=== PATIENT | male | born 1950 | race African-American/Black ===

== ENCOUNTER 2018-01-18 13:54 | Outpatient (CLI) | payer MEDICARE, MEDICAID ==
--- NOTE | 2018-01-18 15:24 | RAD ---
TWO VIEWS OF THE LUMBAR SPINE: DATE: 01/18/18. COMPARISON: Lumbar spine MRI 08/27/16. HISTORY: Fall, evaluate for an L1 fracture. FINDINGS: At the L1 level, there is an age-indeterminate anterior wedge compression fracture. Secondary to bod y habitus, detailed assessment is slightly limited. Anterior loss of vertebral body height is estima minesh in the 35% range. There is disk space narrowing with degenerative end plate change and facet hyp ertrophy at L4-5 and L5-S1. IMPRESSION: Anterior wedge compression fracture of the L1 vertebral body as described above. POS: KIP
== END 2018-01-18 13:55 | disposition home or self-care (01) ==
LOC: TBSIIMAG 13:54
PROVIDERS: ATTEND Neurological Surgery
DX: S32.010A Wedge compression fracture of first lumbar vertebra, initial encounter for closed fracture (principal); S32.2XXA Fracture of coccyx, initial encounter for closed fracture
CPT/HCPCS: 72100

== ENCOUNTER 2018-03-02 13:17 | Outpatient (CLI) | payer MEDICARE, MEDICAID ==
--- NOTE | 2018-03-02 14:10 | RAD ---
TWO VIEWS LUMBOSACRAL SPINE: Comparison: 01-18-18 History: Low back pain with bilateral leg pain and swelling. Patient fell two months ago. FINDINGS: Two views of the lumbosacral spine shows wedge compression deformity of the L1 vertebral body with ap proximately 10-25% height loss. This is unchanged compared to the prior exam. The vertebral bodies de monstrate normal alignment without subluxation. There are small osteophytes surrounding L4-5 and L5-S 1. IMPRESSION: Stable wedge compression fracture of L1. POS: KIP
== END 2018-03-02 13:18 | disposition home or self-care (01) ==
LOC: TBSIIMAG 13:17
PROVIDERS: ATTEND Neurological Surgery
DX: M48.56XA Collapsed vertebra, not elsewhere classified, lumbar region, initial encounter for fracture (principal)
CPT/HCPCS: 72100

== ENCOUNTER 2018-07-21 05:23 | Emergency (ER) | payer MEDICARE, MEDICAID | END 2018-07-21 06:11 | disposition home or self-care (01) | LOC: ERS 05:23 | DX: R06.02 Shortness of breath (principal); G47.30 Sleep apnea, unspecified; E78.5 Hyperlipidemia, unspecified; K21.9 Gastro-esophageal reflux disease without esophagitis; I25.10 Atherosclerotic heart disease of native coronary artery without angina pectoris; E11.9 Type 2 diabetes mellitus without complications; I11.0 Hypertensive heart disease with heart failure; I50.9 Heart failure, unspecified; Z79.899 Other long term (current) drug therapy | CPT/HCPCS: 99284 ==

== ENCOUNTER 2019-03-03 22:55 | Observation (INO) | payer MEDICARE, MEDICAID ==
[~2019-03-03 22:55] MED LIST: ISOVUE-370 76%-LOCM 1 ML ONE
[2019-03-03 23:49] LABS: #Eosinphils 0.1 thou/uL (0.0-0.7); #Lymphocytes 1.3 thou/uL (1.20-3.40); #Monocytes 0.5 thou/uL (0.11-0.59); %Basophils 0.6 % (0.0-1.0); %Eosinophils 1.5 % (0.0-10.0); %Lymphocytes 19.1 % (21.0-51.0); %Monocytes 7.3 % (0.0-10.0); %Neutrophils 71.4 % (42.0-75.0); Hemoglobin 12.4 g/dL (14.0-18.0); Mean Corpuscular Hemoglobin 28.6 pg (27.0-31.0); Mean Corpuscular Volume 89.3 fL (78.0-98.0); Mean Platelet Volume 8.8 fL (7.4-10.4); Platelet Count 157 thou/uL (130-400); RBC Distribution Width 13.1 % (11.5-14.5); Red Blood Cell (RBC) Count 4.32 mill/uL (4.70-6.10)
[2019-03-04 00:10] LABS: ALT (SGPT) 14 U/L (8-55); AST (SGOT) 15 U/L (5-34); Albumin 3.7 g/dL (3.4-4.8); Alkaline Phosphatase 100 U/L (40-150); Anion Gap 10 mmol/L (10-20); BUN (Urea Nitrogen) 19 mg/dL (8.4-25.7); Bilirubin, Total 0.5 mg/dL (0.2-1.2); Calc. Creatinine Clearance 0 mL/min (70-130); Calcium 8.9 mg/dL (7.8-10.44); Carbon Dioxide 26 mmol/L (23-31); Chloride 107 mmol/L (98-107); Estimated GFR-MDRD 47; Globulin 2.8 g/dL (2.4-3.5); Glucose 150 mg/dL (80-115); Lipase 75 U/L (8-78); Potassium 3.6 mmol/L (3.5-5.1); Protein, Total 6.5 g/dL (5.8-8.1); Sodium 139 mmol/L (136-145)
[2019-03-04 00:30] LABS: CKMB 2.3 ng/mL (0-6.6)
[2019-03-04] MEDS ORDERED: Aspirin 325 MG TAB ONE (00:44)
[2019-03-04 03:37] LABS: Troponin I 0.017 ng/mL (< 0.028)
[2019-03-04 06:04] LABS: Anion Gap 11 mmol/L (10-20); BUN (Urea Nitrogen) 18 mg/dL (8.4-25.7); Calc. Creatinine Clearance 100 mL/min (70-130); Calcium 8.9 mg/dL (7.8-10.44); Carbon Dioxide 26 mmol/L (23-31); Chloride 108 mmol/L (98-107); Estimated GFR-MDRD 56; Glucose 114 mg/dL (80-115); Magnesium 2.1 mg/dL (1.6-2.6); Potassium 3.9 mmol/L (3.5-5.1); Sodium 141 mmol/L (136-145)
[2019-03-04 06:09] LABS: Troponin I Less than 0.010 ng/mL (< 0.028)
[2019-03-04] MEDS ORDERED: Morphine 2 MG/ML SYRINGE SLOW IVP PRN (07:25)
[2019-03-04] MEDS ORDERED: Famotidine 20 MG TAB PO SCH (07:30)
--- NOTE | 2019-03-04 07:53 | CT ---
CT ANGIOGRAM OF THE CHEST AND ABDOMEN AORTIC DISSECTION PROTOCOL: DATE: 03/04/2019. COMPARISON: None. HISTORY: Constipation, pressure in the chest. TECHNIQUE: Axial CT imaging is obtained at 2.5 mm intervals from the thoracic inlet through the aortic bifurcati on with IV contrast using a CT angiogram protocol. Coronal and sagittal 3D reformatted imaging obtai anthony. FINDINGS: There is no axillary, hilar, or mediastinal lymphadenopathy. There is scattered atherosclerotic calcification of the coronary arteries, the aortic arch, and the d escending thoracic aorta. There is no pneumothorax noted on either side. There are linear atelectatic changes noted within the right middle lobe, the lingula, and bilateral l ower lobes. No endobronchial lesion identified on either side. No acute pulmonary parenchymal abnor mality is seen on either side. Osseous structures of the chest demonstrate no acute findings. There is an age-indeterminate anterior wedge compression fracture involving the L1 vertebral body wit h approximately 50% loss of vertebral body height anteriorly. This fracture is favored to be old. T here is prominent degenerative change at L4-5 and L5-S1 with disk space narrowing, vacuum disk format ion, and bilateral facet hypertrophy. There is osteophyte encroachment on the neural foramina bilate rally at the L5-S1 level. No evidence for aneurysm or dissection is seen involving the thoracic aorta. The pelvis is not fully imaged on this exam. Lack of oral contrast limits assessment of the bowel. The liver, spleen, pancreas, and adrenal glands are unremarkable. The bilateral kidneys demonstrate multifocal cortical thinning and a peripheral loculated configurati on. There is no evidence for hydronephrosis on either side. There are 2 cysts noted within the left kidney measuring up to 3.2 cm. There is scattered diverticulosis of the descending colon and sigmoid colon. No evidence for diverti culitis. The appendix is visualized and is within normal limits. There is multifocal scattered atherosclerotic calcification of the abdominal aorta and its branches. There is no aneurysm or dissection of the abdominal aorta. No lymphadenopathy is seen in the abdomen. IMPRESSION: No evidence for aneurysm or dissection of the abdominal or thoracic aorta. Numerous incidental findi ngs as described above. POS: SAVANAH
[2019-03-04] MEDS ORDERED: Aspirin 325 MG TAB PO SCH (09:00)
[2019-03-04] MEDS ORDERED: Nitroglycerin 0.4 MG TAB (25 Tab Bottle) SL PRN (09:02)
[2019-03-04] MEDS ORDERED: Dextrose 5% in Water 1,000 ML IV PRN (09:13)
[2019-03-04] MEDS ORDERED: Dextrose 50% Abboject 50 ML SYRINGE SLOW IVP PRN (09:13)
[2019-03-04] MEDS ORDERED: Allopurinol 100 MG TAB PO SCH (09:15)
[2019-03-04] MEDS ORDERED: Aspirin 81 mg Enteric Coated Tablet PO SCH (09:15)
[2019-03-04] MEDS ORDERED: Polyethylene Glycol 3350 17 GM Packet PO SCH (09:15)
[2019-03-04] MEDS ORDERED: Amlodipine 10 MG TAB PO SCH (09:15)
[2019-03-04] MEDS ORDERED: Carvedilol 6.25 MG TAB PO SCH (09:15)
--- NOTE | 2019-03-04 09:54 | HP ---
CHIEF COMPLAINT: Abdominal pain. HISTORY OF PRESENT ILLNESS: The patient is a 68-year-old male, who presented via the emergency department. The patient reports that he has some abdominal bloating and fullness. He has felt some pressure in the abdomen that is causing him a little bit of difficulty taking a full breath. He says it is a little bit better at the moment, but still feels the fullness. The patient did have a bowel movement last night and reports that is the first time in 3 or 4 days. It is common for him to have constipation and he takes something routinely to try to help with that, he does not know the name of it. He denies any chest pain, fevers, or chills. No shortness of breath. Other than the fullness in the abdomen, he has mild chronic cough which he relates to some allergies, but nothing new. REVIEW OF SYSTEMS: All other systems reviewed. All pertinent positives and negatives noted in the HPI. PAST MEDICAL HISTORY: 1. Coronary artery disease with an IA in 1996 with PTCA and stent. Repeat catheterization in 2006 with RCA stent. 2. He has a history of atrial flutter with ablation. 3. Diabetes mellitus. 4. Obstructive sleep apnea, on CPAP. 5. Hyperlipidemia. 6. Hypertension. 7. Chronic kidney disease stage 3. 8. Diverticulosis. 9. L1 compression fracture. PAST SURGICAL HISTORY: 1. Cardiac ablation. 2. Left shoulder replacement. 3. Coronary stents. FAMILY HISTORY: 1. Diabetes. 2. Hypertension. SOCIAL HISTORY: The patient is nonsmoker, nondrinker, nondrug user. He lives alone and gets up and around well on his own. He is . He is full code. His is his surrogate decision maker. ALLERGIES: CODEINE. CURRENT MEDICATIONS: 1. Nitroglycerin p.r.n. 2. Flonase Allergy Relief p.r.n. 3. Calcium 500 mg q.i.d. 4. Atorvastatin 80 mg at bedtime. 5. Pioglitazone 15 mg daily. 6. Esomeprazole 40 mg daily. 7. Carvedilol 12.5 b.i.d. 8. Furosemide 40 mg b.i.d. 9. Potassium 10 mEq daily. 10. Amlodipine 5 mg daily. 11. Aspirin 81 mg daily. 12. Allopurinol 200 mg daily. 13. Tramadol 100 mg b.i.d. 14. Zetia 10 mg at bedtime. 15. Victoza 1.2 subcu p.r.n. PHYSICAL EXAMINATION: VITAL SIGNS: Temperature 98.4, pulse 57, respirations 20, O2 saturation 94% on room air, blood pressure 137/61. GENERAL APPEARANCE: Age-appropriate male. He is in no distress. Very pleasant and cooperative. He is very morbidly obese. BMI is noted at 47.6. HEENT: PERRL. He has no OP lesions. His pharyngeal airway is not visible behind his tongue. NECK: Very large, supple otherwise. HEART: Regular rate and rhythm without murmurs, gallops, or rubs. LUNGS: Diminished, partly due to compromised exam by the body habitus, but no wheezes or rales are noted. ABDOMEN: Obese, soft, nondistended. He does have bowel sounds present which are generally normal. Very modest tenderness to palpation diffusely just giving him more of the sensation of bloat. EXTREMITIES: There are some mild chronic skin changes, but only trace edema bilaterally. NEUROLOGICAL: He moves all extremities spontaneously. He has normal cognition. PSYCH: Normal affect and behavior. SKIN: The patient has normal skin turgor. LABORATORY DATA: White count 7.0, hemoglobin 12.4, platelets 157. Labs initially; sodium 139, potassium 3.6, chloride 107, CO2 of 26, BUN 19, creatinine is 1.76, GFR is 47, glucose 150. Calcium normal. LFTs normal. Troponin 0.029. BNP is 114. Albumin 3.7. Repeat labs; chloride 108, creatinine is 1.5, GFR is 56, and glucose is 111. Troponin number two is 0.17, number three is 0.01. CT dissection protocol shows no evidence of aneurysm or dissection of the abdomen or thoracic aorta. There are some calcifications of the aorta, cortical thinning of the kidneys, L1 compression fracture with degenerative changes at L4-L5 and L5-S1. Diverticulosis is noted. EKG shows sinus rhythm with first-degree AV block, some nonspecific T-wave abnormalities. IMPRESSION AND PLAN: 1. Abdominal pain. The patient has some chronic issues with constipation and motility. We will go ahead and give him some MiraLAX at this point to see if we can clear the system a little better. 2. Shortness of breath. This appears to be related to the abdominal bloat and should improve, does not appear to be cardiac in nature. 3. History of coronary artery disease. The patient does not have any chest pain nor does he have any significant evidence of myocardial injury. Given his chronic kidney disease, his age and size, I do not believe that his troponin represents significant abnormality. It is nonphysiologic downward trend. 4. Diabetes mellitus. We will provide Accu-Cheks sliding scale. 5. Chronic kidney disease stage 3, stable. 6. Hypertension. Resume home medications, otherwise stable. 7. Obstructive sleep apnea. I suspect the patient will not be here overnight to require additional CPAP. Job ID: [id number]
[2019-03-04] MEDS: Acetaminophen 325 MG TAB PO PRN ×2 (14:19→22:36)
[2019-03-04] MEDS: Furosemide 20 MG TAB PO SCH (14:20)
[2019-03-04] MEDS ORDERED: cloNIDine 0.1 MG TAB PO PRN (15:31)
[2019-03-04] MEDS: HumaLOG 300 UNITS/3 ML VIAL SC PRN (18:06)
[2019-03-04] MEDS: Famotidine 20 MG TAB PO SCH (21:03)
[2019-03-04] MEDS: traMADol HCl 50 MG TAB PO SCH (21:03)
--- NOTE | 2019-03-04 22:23 | CON ---
DATE OF CONSULTATION: HISTORY OF PRESENT ILLNESS: Trey Dominguez is a 68-year-old black male, followed by Dr. Knight. In 1995, he had myocardial infarction with total occlusion of the obtuse marginal branch. In 1999, he underwent cardiac catheterization. Normal left ventricular function of 50% to 55%. There was a 50% diagonal lesion. The first obtuse marginal was totally occluded. The right coronary artery had a 90% proximal occlusion. I had seen the patient and was going to place a stent in this location, however, subsequent angiogram showed that the area looked fairly normal and was felt that the 90% occlusion was actually spasm of the right coronary artery and no PTCA or stent was performed. In 2006, he presented with atrial flutter and underwent ablation of that. Since that time, he has done fairly well and continued to follow with Dr. Knight in the office. He now is admitted with abdominal pain and bloating. He has problems with chronic constipation and whenever he is constipated, feels short of breath. He denies any chest discomfort. He has been placed on telemetry and has had episodes of bradycardia. He denies any episodes of syncope. He states that at times he may feel little lightheaded. He has obstructive sleep apnea, but does not have a CPAP machine here. PAST MEDICAL HISTORY: Coronary artery disease, diabetes, hypertension, hypercholesterolemia, obstructive sleep apnea, chronic renal insufficiency, morbid obesity, history of atrial flutter with ablation. PAST SURGICAL HISTORY: Atrial flutter ablation, left shoulder replacement. MEDICATIONS: 1. Allopurinol 200 daily. 2. Amlodipine 5 mg daily. 3. Aspirin 81 daily. 4. Atorvastatin 80 at bedtime. 5. Tums 500 mg p.r.n. 6. Carvedilol 12.5 b.i.d. 7. Nexium 40 daily. 8. Zetia 10 mg at bedtime. 9. Furosemide 40 b.i.d. 10. Linzess 290 mcg daily. 11. Victoza p.r.n. 12. Nitroglycerin p.r.n. 13. Actos 15 mg daily. 14. Tramadol 100 mg b.i.d. 15. Potassium 10 mEq daily. ALLERGIES: CODEINE. FAMILY HISTORY: Positive for coronary artery disease. SOCIAL HISTORY: He does not smoke or drink. REVIEW OF SYSTEMS: Unremarkable. PHYSICAL EXAMINATION: VITAL SIGNS: Blood pressure 165/76, pulse of 60. HEENT: PERRL. NECK: Supple. CHEST: Clear. CARDIAC: S1 and S2 normal without any S3, S4, or murmurs. Carotid upstrokes normal without bruits. ABDOMEN: Very obese. Normal bowel sounds. No tenderness. EXTREMITIES: Trace pretibial edema. NEUROLOGICAL: Grossly intact. SKIN: Warm and dry. LABORATORY DATA: EKG reveals normal sinus rhythm, first-degree AV block, nonspecific ST and T-wave changes. Hemoglobin 12.4, hematocrit 38.6, white count 7000, platelets 157,000. Sodium 141, potassium 3.9, chloride 108, carbon dioxide 26, BUN 18, creatinine 1.50. Cardiac enzymes are unremarkable. BNP 113.7. IMPRESSION: 1. Varying degrees of atrioventricular block. Mostly he has type 1 second- degree AV block. At times, he does have 2-1 block. Some of these episodes occur at night and he does not have his CPAP available and may be related to that. He certainly has never had any syncope, but does have some lightheaded episodes. Carvedilol 12. BID has been discontinued. We will continue to monitor the patient with you. 2. Coronary artery disease with myocardial infarction in 1995 due to occlusion of the first obtuse marginal. In 1999, he had right coronary artery spasm, however , no PTCA was performed and no stent was inserted. 3. Status post atrial flutter ablation. 4. Diabetes. 5. Hypertension. 6. Hypercholesterolemia. 7. Morbid obesity. 8. Obstructive sleep apnea. PLAN: We will continue to monitor the patient with you. At the present time, I do not feel that pacemaker insertion is indicated. Will continue to monitor off Carvedilol. Amlodipine dose may need to be increased. Job ID: [id number] MTDD
[2019-03-04] MEDS ORDERED: Calcium Carbonate 500 MG ChewTAB PO PRN (22:28)
[2019-03-05 04:23] VITALS: BMI 46.8
[2019-03-05] MEDS: Furosemide 20 MG TAB PO SCH ×2 (08:17→13:48)
[2019-03-05] MEDS: traMADol HCl 50 MG TAB PO SCH ×2 (08:18→20:19)
[2019-03-05] MEDS: Famotidine 20 MG TAB PO SCH ×2 (08:18→20:19)
[2019-03-05] MEDS ORDERED: Fluticasone Propionate Nasal Spray 16 gm Bottle NASAL PRN (09:15)
[2019-03-05] MEDS ORDERED: Amlodipine 5 MG TAB PO SCH (09:30)
[2019-03-05] MEDS: HumaLOG 300 UNITS/3 ML VIAL SC PRN (12:44)
[2019-03-05] MEDS ORDERED: Polyethylene Glycol 3350 17 GM Packet PO SCH (13:15)
--- NOTE | 2019-03-05 15:12 | PDOC.PN ---
- Subjective Encounter Start Date: 03/05/19 Encounter Start Time: 15:10 Subjective: feels much better -: has more of an abdominal discomfort which is rather chronic - Objective Resuscitation Status - Order Detail: 03/04/19 09:00 Resuscitation Status Routine Resuscitation Status: FULL: Full Resuscitation MAR Reviewed: Yes Vital Signs & Weight: Vital Signs (12 hours) Temp Pulse Resp BP BP Pulse Ox 03/05/19 11:12 98.0 F 52 L 13 168/78 H 96 03/05/19 08:20 97.8 F 60 13 145/95 H 98 03/05/19 03:27 97.6 F 62 12 145/73 H 97 Weight Weight 327 lb 6.4 oz I&O: 03/04/19 03/05/19 03/06/19 06:59 06:59 06:59 Intake Total 0 240 480 Output Total 1930 501 Balance 0 -1689 Result Diagrams: 03/03/19 23:37 03/04/19 05:37 Additional Labs: Accuchecks 03/05/19 03/05/19 03/04/19 10:33 06:11 20:34 POC Glucose 174 H 134 H 139 H 03/04/19 16:35 POC Glucose 179 H Laboratory Tests 02/11/18 03/03/19 03/03/19 12:09 23:37 23:37 Creatinine 1.63 H 1.76 H Troponin I 0.029 H 03/04/19 03/04/19 03/04/19 03:05 05:37 05:37 Creatinine 1.50 H Troponin I 0.017 Less than 0.010 Phys Exam - Physical Examination Constitutional: NAD HEENT: PERRLA, moist MMs, sclera anicteric, TM's clear, oral pharynx no lesions , 2+ tonsils Neck: no nodes, no JVD, supple, full ROM Respiratory: no wheezing, no rales, no rhonchi, wheezing present, clear to auscultation bilateral Cardiovascular: RRR, no significant murmur, no rub, gallop, irregular Gastrointestinal: soft, non-tender distended Musculoskeletal: no edema, pulses present, edema present Neurological: non-focal, normal sensation, moves all 4 limbs Psychiatric: normal affect, A&O x 3 Dx/Plan (1) AV block Code(s): I44.30 - UNSPECIFIED ATRIOVENTRICULAR BLOCK Status: Acute Comment: cont to hold BB. cardiology following.HR stable for now.on tele (2) ANGELA (obstructive sleep apnea) Code(s): G47.33 - OBSTRUCTIVE SLEEP APNEA (ADULT) (PEDIATRIC) Status: Chronic Comment: CPAP at home.encouraged daily use (3) CKD (chronic kidney disease) stage 3, GFR 30-59 ml/min Status: Chronic Comment: stable.monitor (4) Diabetes 1.5, managed as type 2 Code(s): E13.9 - OTHER SPECIFIED DIABETES MELLITUS WITHOUT COMPLICATIONS Status: Chronic (5) Hypertension Code(s): I10 - ESSENTIAL (PRIMARY) HYPERTENSION Status: Chronic Comment: controlled. cont home meds (6) Morbid obesity Code(s): E66.01 - MORBID (SEVERE) OBESITY DUE TO EXCESS CALORIES Status: Chronic - Plan DVT proph w/SCDs dispo per cardiolgy recs -: may need Event/holter monitor.BB on hols.restart amlodipine for BP -: one mpore dose of Miralaz. restart Linzess. -: HD stable otherwise * . Review of Systems - Review of Systems Constitutional: negative: fever, chills, sweats, weakness, malaise, other Respiratory: negative: Cough, Dry, Shortness of Breath, Hemoptysis, SOB with Excertion, Pleuritic Pain, Sputum, Wheezing Cardiovascular: negative: chest pain, palpitations, orthopnea, paroxysmal nocturnal dyspnea, edema, light headedness, other Gastrointestinal: negative: Nausea, Vomiting, Abdominal Pain, Diarrhea, Constipation, Melena, Hematochezia, Other Genitourinary: negative: Dysuria, Frequency, Incontinence, Hematuria, Retention , Other Musculoskeletal: negative: Neck Pain, Shoulder Pain, Arm Pain, Back Pain, Hand Pain, Leg Pain, Foot Pain, Other Skin: negative: Rash, Lesions, [place], Bruising, Other Neurological: negative: Weakness, Numbness, Incoordination, Change in Speech, Confusion, Seizures, Other - Medications/Allergies Allergies/Adverse Reactions: Allergies Allergy/AdvReac Type Severity Reaction Status Date / Time codeine Allergy Verified 03/04/19 03:06 Medications: Current Medications Acetaminophen (Tylenol) 650 mg PO Q6H PRN PRN Reason: Headache/Fever or Pain Last Admin: 03/04/19 22:36 Dose: 650 mg Amlodipine Besylate (Norvasc) 5 mg PO DAILY [facility] Atorvastatin Calcium (Lipitor) 80 mg PO HS [facility] Calcium Carbonate (Tums) 500 mg PO QIDPRN PRN PRN Reason: Gas Pain Last Admin: 03/04/19 22:36 Dose: 500 mg Clonidine (Catapres) 0.1 mg PO Q4H PRN PRN Reason: SBP > 180, DBP > 100 Last Admin: 03/04/19 15:50 Dose: 0.1 mg Dextrose/Water (Dextrose 50%) 25 gm SLOW IVP PRN PRN PRN Reason: Hypoglycemia Ezetimibe (Zetia) 10 mg PO HS [facility] Famotidine (Pepcid) 20 mg PO BID [facility] Last Admin: 03/05/19 08:18 Dose: 20 mg Fluticasone Propionate (Flonase Nasal [place]) 0 gm NASAL DAILY PRN PRN Reason: Allergies Furosemide (Lasix) 40 mg PO 0700,1400 [facility] Last Admin: 03/05/19 13:48 Dose: 40 mg Glucagon (Glucagon) 1 mg IM PRN PRN PRN Reason: Hypoglycemia Dextrose/Water (D5w) 1,000 mls @ 0 mls/hr IV .Q0M PRN PRN Reason: Hypoglycemia Insulin Human Lispro (Humalog) 0 units SC .MILD SLIDING SCALE PRN PRN Reason: Mild Correctional Scale Last Admin: 03/05/19 12:44 Dose: 2 unit Nitroglycerin (Nitrostat) 0.4 mg SL Q5MIN PRN PRN Reason: Chest Pain (Linaclotide [ (Linzess] 290 Mcg)) 290 mcg PO DAILY-AC [facility] Pantoprazole Sodium (Protonix) 40 mg PO DAILY [facility] Pioglitazone HCl (Actos) 15 mg PO DAILY [facility] Polyethylene Glycol (Miralax) 17 gm PO NOW [facility] Stop: 03/05/19 15:15 Last Admin: 03/05/19 13:48 Dose: 17 gm Tramadol HCl (Ultram) 100 mg PO BID [facility] Last Admin: 03/05/19 08:18 Dose: 100 mg
[2019-03-05] MEDS: Acetaminophen 325 MG TAB PO PRN (18:03)
[2019-03-05] MEDS: (Linaclotide [Linzess] 290 MCG) PO SCH (18:29)
[2019-03-05] MEDS: hydrALAZINE 25 MG TAB PO SCH (20:19)
[2019-03-05] MEDS ORDERED: Atorvastatin Calcium 40 MG TAB PO SCH (21:00)
[2019-03-05] MEDS ORDERED: Ezetimibe 10 MG TAB PO SCH (21:00)
[2019-03-06] MEDS: Furosemide 20 MG TAB PO SCH ×2 (08:16→13:24)
[2019-03-06] MEDS: Famotidine 20 MG TAB PO SCH (08:17)
[2019-03-06] MEDS: traMADol HCl 50 MG TAB PO SCH (08:17)
[2019-03-06] MEDS: hydrALAZINE 25 MG TAB PO SCH ×2 (08:17→15:50)
[2019-03-06] MEDS: (Linaclotide [Linzess] 290 MCG) PO SCH (08:19)
[2019-03-06] MEDS ORDERED: Pioglitazone HCl 15 MG TAB PO SCH (09:00)
[2019-03-06] MEDS ORDERED: Amlodipine 5 MG TAB PO SCH (09:00)
[2019-03-06] MEDS ORDERED: Amlodipine 10 MG TAB PO SCH (09:15)
[2019-03-06] MEDS ORDERED: Carvedilol 6.25 MG TAB PO SCH ×2 (12:30→17:00)
[2019-03-06 16:06] VITALS: BP 167/87; TEMP 97.7
--- NOTE | 2019-03-07 00:52 | DIS ---
DATE OF ADMISSION: 03/04/2019 DATE OF DISCHARGE: 03/06/2019 CONDITION: At the time of discharge, stable and improved. DISCHARGE DISPOSITION: Home. DISCHARGE DIAGNOSES: 1. AV block and sinus bradycardia, intermittently likely due to beta blockers. 2. Chronic abdominal discomfort due to likely irritable bowel syndrome, morbid obesity, and constipation. 3. Obstructive sleep apnea, on CPAP at home. 4. Chronic kidney disease, stage 3. 5. Diabetes mellitus. 6. Hypertension. 7. Morbid obesity with a BMI of 46. PROCEDURES DONE IN HOSPITAL: CT scan with dissection protocol, which is negative for anything acute. Diverticulosis without diverticulitis was seen. Calcification of abdominal aorta and its branches was seen. Old L1 vertebral body fracture was seen. Lungs clear. IN-HOUSE CONSULTATION: Cardiology, Dr. Pulliam and Dr. Knight. DISCHARGE MEDICATIONS: Coreg dose has been reduced from 12.5 mg p.o. b.i.d. to 6.25 mg p.o. b.i.d. He was also given hydralazine 25 p.o. t.i.d. p.r.n. to use systolic blood pressure more than 170. Otherwise, resume home medications as previously. No other changes were made. Please see admission history and physical dictated by Dr. Luis Monae for a complete list of home medications. HISTORY OF PRESENTING ILLNESS: Mr. Dominguez is a 69-year-old male with past medical history of diabetes, morbid obesity, sleep apnea, and coronary artery disease with history of stenting as well as history of atrial flutter with ablation in the past, who presented to the emergency room with complaints of abdominal pain, constipation, and was admitted to Internal Medicine Service for further evaluation, even though his symptoms are rather chronic. There were some concerns of shortness of breath because of the abnormal distention that needed to be ruled out as cardiac. CT dissection protocol was done which was negative for the same. Please see H and P dictated by Dr. Luis Monae for full details on 03/04/2019. HOSPITAL COURSE: Cardiac enzymes were trended and were unremarkable. Cardiology saw the patient. He had some changes on the heart monitor suggestive of bradycardia with variable degrees of AV block, so carvedilol was held. Dr. Knight, who is his regular plodding operator, saw the patient this morning and his heart rate is in the high 50s to low 60s, so carvedilol was restarted at a lower dose. His blood pressure was also running high without it. He was given hydralazine only p.r.n. basis. At this time, there is no further evaluation necessary. His symptoms have improved and he has had a big bowel movement yesterday evening with MiraLAX. He will continue his Linzess as an outpatient. His symptoms are quite suggestive of irritable bowel syndrome. Other than that, he required no real intervention while in the hospital. He was seen and examined prior to discharge. Vital signs are stable. Blood pressure at the time of discharge, 167/87, in no acute distress, sitting up and eating lunch. Chest clear to auscultation bilaterally. Rate and rhythm are regular. He will follow up with Dr. Knight in one month. PRIMARY CARE PHYSICIAN: Dr. Viviana Sams. Job ID: [id number]
[2019-03-07] MEDS ORDERED: Amlodipine 10 MG TAB PO SCH (09:00)
== END 2019-03-06 17:00 | disposition home or self-care (01) ==
LOC: ERS 22:55 → 2SW 03-04 01:00
PROVIDERS: ADMIT Hospitalist; ATTEND Hospitalist
DX: R10.9 Unspecified abdominal pain (principal); G89.29 Other chronic pain; I44.0 Atrioventricular block, first degree; R00.1 Bradycardia, unspecified; G47.33 Obstructive sleep apnea (adult) (pediatric); R06.02 Shortness of breath; I25.10 Atherosclerotic heart disease of native coronary artery without angina pectoris; I13.0 Hypertensive heart and chronic kidney disease with heart failure and stage 1 through stage 4 chronic kidney disease, or unspecified chronic kidney disease; E11.22 Type 2 diabetes mellitus with diabetic chronic kidney disease; N18.3 Chronic kidney disease, stage 3 (moderate); I50.9 Heart failure, unspecified; E66.01 Morbid (severe) obesity due to excess calories; E78.5 Hyperlipidemia, unspecified; K21.9 Gastro-esophageal reflux disease without esophagitis; Z99.89 Dependence on other enabling machines and devices; Z68.42 Body mass index [BMI] 45.0-49.9, adult; Z95.5 Presence of coronary angioplasty implant and graft; Z88.5 Allergy status to narcotic agent; Z79.82 Long term (current) use of aspirin; Z79.899 Other long term (current) drug therapy
CPT/HCPCS: 71275; 80048; 80053; 82553; 82962 ×3; 83605; 83690; 83735; 83880; 84484 ×3; 85025; 93005; 96374; 99285; G0378 ×4; 36415; 36416; J2270; Q9966

== ENCOUNTER 2019-06-23 23:32 | Inpatient (IN) | payer MEDICARE, MEDICAID ==
[2019-06-23 23:59] LABS: #Basophils 0.1 thou/uL (0.0-0.2); #Eosinphils 0.2 thou/uL (0.0-0.7); #Lymphocytes 1.4 thou/uL (1.20-3.40); #Monocytes 0.8 thou/uL (0.11-0.59); #Neutrophils 6.9 thou/uL (1.40-6.50); %Basophils 0.7 % (0.0-1.0); %Eosinophils 1.7 % (0.0-10.0); %Lymphocytes 15.4 % (21.0-51.0); %Monocytes 8.3 % (0.0-10.0); %Neutrophils 73.9 % (42.0-75.0); Hemoglobin 12.9 g/dL (14.0-18.0); Mean Corpuscular HGB CONC 32.8 g/dL (32.0-36.0); Mean Corpuscular Hemoglobin 29.3 pg (27.0-31.0); Mean Corpuscular Volume 89.3 fL (78.0-98.0); Mean Platelet Volume 8.7 fL (7.4-10.4); Platelet Count 195 thou/uL (130-400); RBC Distribution Width 12.1 % (11.5-14.5); Red Blood Cell (RBC) Count 4.39 mill/uL (4.70-6.10); White Blood Cell (WBC) Count 9.4 thou/uL (4.8-10.8)
--- NOTE | 2019-06-24 00:01 | RAD ---
EXAM: CHEST ONE VIEW HISTORY: Dyspnea. COMPARISON: 03/27/2014 FINDINGS: This examination is obtained in a shallow depth of inspiration which in combination with the portable technique of the exam accentuates the cardiac silhouette and bronchovascular markings. Linear bibasilar densities are seen which may be related to either mild atelectasis or scarring. A left candis ohumeral prosthesis is partially imaged. Vascular calcifications are again seen in an ectatic thoracic aorta. Chest has not significantly changed from prior exam. IMPRESSION: Bibasilar atelectasis and/or scarring. There is otherwise no acute cardiopulmonary process.
[2019-06-24 00:20] LABS: ALT (SGPT) 13 U/L (8-55); AST (SGOT) 14 U/L (5-34); Alkaline Phosphatase 108 U/L (40-110); Anion Gap 13 mmol/L (10-20); BUN (Urea Nitrogen) 24 mg/dL (8.4-25.7); Bilirubin, Total 0.5 mg/dL (0.2-1.2); Calc. Creatinine Clearance 0 mL/min (70-130); Carbon Dioxide 27 mmol/L (23-31); Chloride 104 mmol/L (98-107); Estimated GFR-MDRD 42; Glucose 114 mg/dL (80-115); Magnesium 1.9 mg/dL (1.6-2.6); Potassium 3.7 mmol/L (3.5-5.1); Sodium 140 mmol/L (136-145)
[2019-06-24] MEDS ORDERED: Aspirin Chewable 81 MG TAB ONE (00:48)
[2019-06-24 01:15] LABS: Bilirubin Negative (Negative); Blood, Urine Negative (Negative); Clarity Clear (Clear); Glucose, Urine (Dipstick) Normal (Negative); Leukocyte Negative Leu/uL (Negative); Nitrite Negative (Negative); Protein, Urine (Dipstick) Negative (Neg-Trace)
[2019-06-24 01:53] LABS: Troponin I Less than 0.010 ng/mL (< 0.028)
[2019-06-24] MEDS ORDERED: Furosemide 40 MG/4 ML VIAL SLOW IVP SCH ×2 (02:00→14:00)
--- NOTE | 2019-06-24 02:05 | PDOC.EVN ---
Event Note - Event Note Event Note: [id number] HP
--- NOTE | 2019-06-24 02:50 | HP ---
CHIEF COMPLAINT: Shortness of breath. HISTORY OF PRESENT ILLNESS: Mr. Dominguez is a 69-year-old male with history of coronary artery disease, diabetes, hyperlipidemia, hypertension, morbid obesity, among others, presents to the emergency room with shortness of breath and orthopnea for the last few days. Also, he noticed mild leg swelling. Initial workup in the emergency room including troponin and EKG, no acute finding. CT angiogram of the chest is being done, results are pending at time of this dictation. The patient's creatinine is 1.95. D-dimer 0.69. Chest x-ray shows bibasilar atelectasis and/or scarring. CT angiogram of the chest is being done, results are pending. The patient is being admitted to the hospital for further management. PAST MEDICAL HISTORY: 1. Diabetes. 2. Hyperlipidemia. 3. Hypertension. 4. Smoking. 5. Coronary artery disease. 6. Morbid obesity. PAST SURGICAL HISTORY: Cardiac stent x2. SOCIAL HISTORY: Denies alcohol use. Denies drug use. Denies smoking history. FAMILY HISTORY: Reviewed and noncontributory. HOME MEDICATIONS: Please see home medication reconciliation form for updated medications. ALLERGIES: ALLERGIC TO CODEINE. REVIEW OF SYSTEMS: Review of 14 systems is negative except what is mentioned in the history of present illness. PHYSICAL EXAMINATION: GENERAL: The patient is awake, alert, orthopneic, morbidly obese. HEAD AND NECK: Normocephalic, atraumatic. NECK: Supple. CHEST: Decreased air entry bilaterally. HEART: S1, S2. Regular. ABDOMEN: Obese, soft. Bowel sounds present. NEUROLOGIC: Awake, alert, oriented x3. PSYCH: Normal mood. EXTREMITIES: 1+ pedal edema. LABORATORY DATA: As mentioned above in the history of present illness. ASSESSMENT: 1. Shortness of breath, etiology is not clear, still waiting for CT angiogram of the chest results. 2. Congestive heart failure ? 3. Coronary artery disease with history of cardiac stents. 4. Morbid obesity. 5. Hypertension. 6. Hyperlipidemia. 7. Diabetes mellitus, type 2. 8. Elevated creatinine. PLAN: 1. Admit. 2. Telemetry monitoring. 3. Serial cardiac enzymes. 4. 2D echo. 5. Follow CT angiogram results of the chest. 6. Give the patient one dose of IV Lasix and reassess in a.m. 7. Consider to consult the patient's upsetter helper in a.m. for evaluation and further recommendations if the patient remains symptomatic. 8. Monitor kidney function and urine output. 9. Reconcile home medications. 10. DVT prophylaxis, low-dose heparin. 11. Expected length of stay is at least 1 midnight if the patient is stable and shows significant clinical improvement. Job ID: [id number]
[2019-06-24 03:10] LABS: Anion Gap 10 mmol/L (10-20); BUN (Urea Nitrogen) 25 mg/dL (8.4-25.7); Calc. Creatinine Clearance 0 mL/min (70-130); Carbon Dioxide 29 mmol/L (23-31); Chloride 104 mmol/L (98-107); Estimated GFR-MDRD 45; Glucose 98 mg/dL (80-115); Potassium 4.2 mmol/L (3.5-5.1); Sodium 139 mmol/L (136-145)
[2019-06-24 03:23] VITALS: BMI 46.5
[2019-06-24 05:00] LABS: Troponin I Less than 0.010 ng/mL (< 0.028)
--- NOTE | 2019-06-24 08:11 | CT ---
PRELIMINARY REPORT/[facility]/EMERGENCY AFTER HOURS PROCEDURE PROCEDURE INFORMATION: Exam: CT Angiography Chest With Contrast Exam date and time: 06/24/2019 12:41 AM Clinical history: 69 years old, male; Patient HX: PT reports shortness of breath beginning yesterday. He states that it is most severe when he is lying flat, or with exertion. PT denies any chest pain, o r pain upon inspiration/expiration. Cardiac stent x2 TECHNIQUE: Imaging protocol: Computed tomographic angiography of the chest with intravenous contrast. 3D rendering: MIP reconstructed images were created and reviewed. COMPARISON: No relevant prior studies available. FINDINGS: Pulmonary arteries: Suboptimal contrast bolus. No filling defect in the main pulmonary artery or main right or left pulmonary arteries to suggest pulmonary embolism. Assessment for embolism beyond the central level cannot be accurately rendered due to bolus limitations. Aorta: No aortic aneurysm. No aortic dissection. Lungs: Low lung volumes bilaterally with bibasilar consolidations, likely reflective of atelectasis f rom lack of expansion. Benign calcified sub cm granuloma, right upper lobe. Pleural space: No pneumothorax. No pleural effusion. Heart: There are atheromatous calcifications of the aorta and coronary vasculature. Lymph nodes: Unremarkable. No enlarged lymph nodes. Bones/joints: Chronic degenerative spinal changes without acute fracture or dislocation. Soft tissues: Unremarkable. IMPRESSION: No filling defect in the main pulmonary artery or main right or left pulmonary arteries to suggest pulmonary embolism. Assessment for embolism beyond the central level cannot be accurately rendered due to bolus limitations. Low lung volumes bilaterally with bibasilar consolidations, likely reflective of atelectasis from lac k of expansion. Remote granulomatous disease changes. Thank you for allowing us to participate in the care of your patient. Dictated and Authenticated by: Casper Macario MD 06/24/2019 1:16 AM Central Time ([place] & [place]) FINAL REPORT: CT PULMONARY ANGIOGRAM WITH IV CONTRAST AND 3D MIP RECONSTRUCTIONS: PROVIDED CLINICAL HISTORY: Chest pain COMPARISON: 03/04/2019 FINDINGS/IMPRESSION: Agree with the preliminary interpretation given by CARLOS. Transcribed Date/Time: 06/24/2019 8:26 AM
[2019-06-24] MEDS: Heparin 5,000 UNITS/ML VIAL SC SCH ×3 (08:17→20:28)
[2019-06-24] MEDS ORDERED: Aspirin 325 mg Enteric Coated Tablet PO SCH (09:00)
[2019-06-24] MEDS ORDERED: Nitroglycerin 0.4 MG TAB (25 Tab Bottle) SL PRN (10:21)
[2019-06-24] MEDS ORDERED: (Liraglutide [Victoza 2-Pak] 1.2 MG) SC PRN (10:21)
[2019-06-24] MEDS ORDERED: Simethicone Chewable 80 MG TAB PO PRN (10:49)
[2019-06-24] MEDS: Furosemide 40 MG TAB PO SCH (14:02)
--- NOTE | 2019-06-24 15:21 | CON ---
DATE OF CONSULTATION: 06/24/2019 REASON FOR CONSULTATION: Shortness of breath. PRIMARY CENTRAL OFFICE REPAIRER: Noah Knight MD HISTORY OF PRESENT ILLNESS: Mr. Dominguez is a pleasant 69-year-old gentleman who comes to the hospital for shortness of breath. He was diagnosed clinically with heart failure. He was given IV Lasix and is already feeling a little bit better. He was admitted for this. His troponins have been negative. His BNP was completely normal. He is still needing nasal cannula. He does have a history of [id number] coronary artery disease. Last catheterization was about 19 years ago. He is morbidly obese and uses CPAP. He does not have it with him today, and he is going into 2:1 AV block while sleeping, also having Wenckebach while sleeping. He admits to having some chest pain recently, but currently he is not having any chest pain, tightness, or pressure, only shortness of breath that is actually getting better. He is unable to lie flat today, but feels much better and probably will be able to lie flat tomorrow. PAST MEDICAL HISTORY: 1. Type 2 diabetes. 2. Hyperlipidemia. 3. Hypertension. 4. History of smoking. 5. Coronary artery disease with a 50% diagonal lesion and occluded OM, which was a cause of his initial AR in 1995. A severe RCA lesion in the year 1999 was thought to be spasm. He does not have any stents in. 6. History of atrial flutter, status post ablation back in 2006. 7. Sleep apnea. PAST SURGICAL HISTORY: Cardiac catheterization. He has never had a stent placed in the past. This needs to be corrected in the surgical history. It says that he has been stented before, he has never had a stent in the past. For future notes, he has never had a stent in the past. OUTPATIENT MEDICATIONS: 1. Victoza. 2. Zetia. 3. Amlodipine 10 mg a day. 4. Potassium chloride 10 mEq a day. 5. Sublingual nitroglycerin p.r.n. 6. Hydralazine 25 mg t.i.d. 7. Linzess. 8. Aspirin 81 a day. 9. Tramadol p.r.n. 10. Pioglitazone 15 mg a day. 11. Nexium daily. 12. Furosemide 40 mg twice a day. 13. Atorvastatin 80 mg at bedtime. 14. Allopurinol 200 mg a day. ALLERGIES: CODEINE AND LETTUCE. FAMILY HISTORY: Noncontributory. SOCIAL HISTORY: No alcohol, tobacco, or drugs. REVIEW OF SYSTEMS: A 12-point review of systems was done and is all negative unless stated in the history of present illness. PHYSICAL EXAMINATION: VITAL SIGNS: Temperature 98.3, pulse 80, respiratory rate 20, saturating 98% on 2 L nasal cannula, blood pressure 143/87. GENERAL: Awake, alert, oriented x3, in no distress. HEENT: Normocephalic and atraumatic. NECK: Supple. LUNGS: Distant but clear. CARDIOVASCULAR: S1 and S2. No S3 or S4. There is a very soft grade 1 to 2/6 systolic murmur at the right upper sternal border. ABDOMEN: Soft. Positive bowel sounds. EXTREMITIES: Trace edema. SKIN: Warm and dry. LABORATORY DATA: Laboratory work was reviewed. CBC with a white count of 9, hemoglobin 12.9, hematocrit of 39, and platelet count of 195. Coags, D-dimer was high. Chemistry; creatinine was high at 1.9, down to 1.8. Looking at previous visits, he is close to his baseline. Troponin was undetectable x2. BNP was only 96. UA was unremarkable. Influenza A and B were negative. CT of the chest showed no evidence of heart failure. No pulmonary embolism in the central arteries. Low lung volumes bilaterally with bibasilar consolidations, which is thought to be reflective atelectasis from lack of expansion and his remote granulomatous disease. ASSESSMENT AND PLAN: 1. Shortness of breath. 2. Acute on chronic diastolic heart failure, most likely. 3. Obstructive sleep apnea. 4. 2:1 atrioventricular block while sleeping off the CPAP. PLAN: 1. No indication for pacemaker given his rhythm disturbances are only when he is sleeping without a CPAP. Solution for this is not a pacemaker, but using his CPAP. 2. Shortness of breath may be related to a little volume overload. We will give one more dose of IV Lasix. 3. We will plan on doing a risk stratification with nuclear stress test tomorrow as he has already had lunch today. Thank you for allowing me to participate in the care of your patient. We will follow. Job ID: [id number]
[2019-06-24] MEDS: hydrALAZINE 25 MG TAB PO SCH ×2 (15:39→20:27)
[2019-06-24] MEDS ORDERED: Iopamidol-370 76% 500 ML 1 ML ONE (16:38)
[2019-06-24] MEDS: traMADol HCl 50 MG TAB PO SCH (19:09)
[2019-06-24] MEDS: Ezetimibe 10 MG TAB PO SCH (20:27)
[2019-06-24] MEDS: Atorvastatin Calcium 40 MG TAB PO SCH (20:27)
[2019-06-25 08:25] LABS: #Basophils 0.1 thou/uL (0.0-0.2); #Eosinphils 0.2 thou/uL (0.0-0.7); #Lymphocytes 1.2 thou/uL (1.20-3.40); #Monocytes 0.5 thou/uL (0.11-0.59); #Neutrophils 3.8 thou/uL (1.40-6.50); %Eosinophils 3.2 % (0.0-10.0); %Lymphocytes 21.5 % (21.0-51.0); %Monocytes 8.9 % (0.0-10.0); %Neutrophils 65.4 % (42.0-75.0); Hemoglobin 13.1 g/dL (14.0-18.0); Mean Corpuscular Hemoglobin 28.7 pg (27.0-31.0); Mean Corpuscular Volume 89.7 fL (78.0-98.0); Mean Platelet Volume 8.4 fL (7.4-10.4); Platelet Count 206 thou/uL (130-400); RBC Distribution Width 12.3 % (11.5-14.5); Red Blood Cell (RBC) Count 4.57 mill/uL (4.70-6.10); White Blood Cell (WBC) Count 5.8 thou/uL (4.8-10.8)
[2019-06-25] MEDS ORDERED: Magnesium 2 GM/50 ML 2 GM in Premix Bag 1 BAG IVPB SCH (08:30)
[2019-06-25 08:44] LABS: Anion Gap 12 mmol/L (10-20); BUN (Urea Nitrogen) 21 mg/dL (8.4-25.7); Calc. Creatinine Clearance 91 mL/min (70-130); Calcium 9.3 mg/dL (7.8-10.44); Carbon Dioxide 30 mmol/L (23-31); Chloride 102 mmol/L (98-107); Estimated GFR-MDRD 54; Glucose 129 mg/dL (80-115); Magnesium 2.2 mg/dL (1.6-2.6); Potassium 4.1 mmol/L (3.5-5.1); Sodium 140 mmol/L (136-145)
[2019-06-25] MEDS: Pioglitazone HCl 15 MG TAB PO SCH (09:00)
[2019-06-25] MEDS: Heparin 5,000 UNITS/ML VIAL SC SCH ×3 (11:14→20:42)
[2019-06-25] MEDS: traMADol HCl 50 MG TAB PO SCH ×2 (11:14→20:41)
[2019-06-25] MEDS: Allopurinol 100 MG TAB PO SCH (11:15)
[2019-06-25] MEDS: Amlodipine 10 MG TAB PO SCH (11:15)
[2019-06-25] MEDS: Potassium Chloride 10 MEQ TAB PO SCH (11:16)
[2019-06-25] MEDS: hydrALAZINE 25 MG TAB PO SCH ×3 (11:16→20:41)
[2019-06-25] MEDS: Furosemide 40 MG TAB PO SCH ×2 (11:16→15:22)
[2019-06-25] MEDS: Aspirin 81 mg Enteric Coated Tablet PO SCH (11:17)
--- NOTE | 2019-06-25 14:48 | PDOC.CPN ---
- Subjective Date: 06/25/19 Time: 14:45 Interval history: He was ready to get a stress test with Lexiscan and he was wide awake and was having 2nd degree AV block Mobitz type 2 so stress was put on hold. - Review of Systems General: denies: fever/chills, weight/appetite/sleep changes, night sweats, fatigue Respiratory: reports: shortness of breath. denies: cough, congestion, exercise intolerance Cardiovascular: denies: chest pain, palpitation, edema, paroxysmal nocturnal dyspnea, orthopnea Gastrointestinal: denies: nausea, vomiting, diarrhea, constipation, abd pain, GI bleeding Musculoskeletal: denies: pain, tenderness, stiffness, swelling, arthritis/ arthralgias Neurological: denies: numbness, syncope, seizure, weakness - Objective Allergies/Adverse Reactions: Allergies Allergy/AdvReac Type Severity Reaction Status Date / Time codeine Allergy Verified 06/24/19 02:34 lettuce Allergy Verified 06/24/19 02:53 Visit Medications: Current Medications Allopurinol (Zyloprim) 200 mg PO DAILY [facility] Last Admin: 06/25/19 11:15 Dose: 200 mg Amlodipine Besylate (Norvasc) 10 mg PO DAILY [facility] Last Admin: 06/25/19 11:15 Dose: 10 mg Aspirin (Ecotrin) 81 mg PO DAILY [facility] Last Admin: 06/25/19 11:17 Dose: 81 mg Atorvastatin Calcium (Lipitor) 80 mg PO HS [facility] Last Admin: 06/24/19 20:27 Dose: 80 mg Ezetimibe (Zetia) 10 mg PO HS [facility] Last Admin: 06/24/19 20:27 Dose: 10 mg Furosemide (Lasix) 40 mg PO 0700,1400 [facility] Last Admin: 06/25/19 11:16 Dose: 40 mg Heparin Sodium (Porcine) (Heparin) 5,000 units SC TID [facility] Last Admin: 06/25/19 11:14 Dose: 5,000 units Hydralazine HCl (Apresoline) 25 mg PO TID [facility] Last Admin: 06/25/19 11:16 Dose: 25 mg Nitroglycerin (Nitrostat) 0.4 mg SL Q5MIN PRN PRN Reason: Chest Pain (Liraglutide [ Victoza 2-Compa] 1.2 Mg) 1.2 mg SC DAILYPRN PRN PRN Reason: Hyperglycemia Linaclotide [Linzess (] 290 Mcg) 1 each PO DAILY-AC [facility] Last Admin: 06/25/19 11:40 Dose: 1 each Pioglitazone HCl (Actos) 15 mg PO DAILY [facility] Last Admin: 06/25/19 09:00 Dose: Not Given Potassium Chloride (Klor-Con 10) 10 meq PO QAM-WM [facility] Last Admin: 06/25/19 11:16 Dose: 10 meq Simethicone (Mylicon Chewable) 80 mg PO HS PRN PRN Reason: Gas Pain Last Admin: 06/24/19 11:23 Dose: 80 mg Tramadol HCl (Ultram) 100 mg PO BID [facility] Last Admin: 06/25/19 11:14 Dose: 100 mg Vital Signs & Weight: Vital Signs Temp Pulse Resp BP BP Pulse Ox 06/25/19 12:01 98.1 F 80 20 146/70 H 98 06/25/19 07:20 98.9 F 79 18 145/67 H 94 L 06/25/19 04:08 98.7 F 72 18 134/64 95 Weight 316 lb 14.4 oz - Physical Exam General: alert & oriented x3 HEENT: mucus membranes moist Neck: supple neck, midline trachea Cardiac: regular rate and rhythm, no murmur Lungs: clear to auscultation Neuro: grossly intact Abdomen: active bowel sounds, soft, non-tender Extremities: no edema Skin: clear Musculoskeletal: no pain - Labs Result Diagrams: 06/25/19 08:17 06/25/19 08:17 Troponin/CKMB Troponin I Less than 0.010 ng/mL (< 0.028) 06/24/19 04:32 - Telemetry Sinus rhythms and dysrhythmias: sinus rhythm - Assessment/Plan Assessment/Plan: 1. SOB 2. morbid obesity 3. Sleep apnea 4. 2nd degee AV block Mobitz type 2 while awake in the stress lab BEFORE any adenosine was injected. Procedure cancelled. PLAN: - Possible cause of SOB is Mobitz Type 2 - Will likely need a PPM. - Will consult EP for their opinion - Dr. Knight to follow up in the morning.
[2019-06-25] MEDS: Atorvastatin Calcium 40 MG TAB PO SCH (20:40)
[2019-06-25] MEDS: Ezetimibe 10 MG TAB PO SCH (20:42)
--- NOTE | 2019-06-25 21:32 | PRG ---
DATE OF SERVICE: 06/25/2019 SUBJECTIVE: A 69-year-old male with coronary artery disease, diabetes mellitus type 2, hypertension, hyperlipidemia, morbid obesity, and obstructive sleep apnea, presented to the hospital with shortness of breath. He underwent echocardiogram that showed diastolic dysfunction. Telemetry monitoring showed high-degree AV blocks. This morning, he had nonsustained ventricular tachycardia as well. He denies any chest discomfort at this time. No palpitations reported. REVIEW OF SYSTEMS: The patient denies any nausea, vomiting, diarrhea, or focal neurologic deficit. PHYSICAL EXAMINATION: VITAL SIGNS: Temperature 98.9, pulse of 79, respirations 18, blood pressure 145/67, O2 saturation 94% on room air. GENERAL: A 69-year-old male, in no apparent distress. HEENT: Head, atraumatic and normocephalic. Sclerae anicteric. Moist mucous membranes. No oral lesion. NECK: Supple. No JVD. No carotid bruit. LUNGS: Showed diminished air entry at bilateral bases. No wheezing, rales, or rhonchi. Symmetrical. HEART: S1, S2 present. Regular rate and rhythm. No rubs or gallops. ABDOMEN: Soft, obese. Bowel sounds present. EXTREMITIES: No edema or calf tenderness. NEUROLOGIC: Grossly nonfocal. PSYCHIATRIC: Alert, awake, and oriented x3. Normal affect. CURRENT MEDICATIONS: Reviewed. The patient is on, 1. Aspirin. 2. Lasix. 3. Hydralazine. 4. Heparin for DVT prophylaxis. 5. Amlodipine. LABORATORY FINDINGS: Telemetry monitoring by my review showed sinus rhythm with intermittent high-grade AV block with nonsustained ventricular tachycardia today. WBC 5.8 with hemoglobin 13.1. Creatinine of 1.55 from 1.95 on admission. Troponin negative. BNP was 96.7. CT angiogram of the chest on admission was negative for pulmonary embolism. Chest x-ray by my review was negative for infiltrate. Echocardiogram as discussed above. IMPRESSION: 1. Shortness of breath, multifactorial. 2. Second-degree AV block Mobitz type 2 in the stress lab. 3. Wide complex tachycardia. 4. Obstructive sleep apnea, not compliant with CPAP. 5. Morbid obesity with a BMI of 45.5. 6. Acute kidney injury on chronic kidney disease stage 3. 7. Chronic normocytic normochromic anemia. 8. Hypertension. 9. Hyperlipidemia. 10. Diabetes mellitus type 2. 11. Coronary artery disease, status post stent placement. 12. Chronic diastolic heart failure. PLAN: The patient will require 2 to 3 days for stabilization. He will be kept n.p.o. past midnight for electrophysiology evaluation. Stress test was canceled. We will continue sliding scale. Continue other home medications. Recheck labs in a.m. We will check TSH. Plan was discussed with the patient in detail. He stated understanding. Job ID: [id number]
[2019-06-26 04:58] LABS: Anion Gap 10 mmol/L (10-20); BUN (Urea Nitrogen) 26 mg/dL (8.4-25.7); Calc. Creatinine Clearance 94 mL/min (70-130); Calcium 9.1 mg/dL (7.8-10.44); Carbon Dioxide 27 mmol/L (23-31); Chloride 103 mmol/L (98-107); Estimated GFR-MDRD 55; Glucose 134 mg/dL (80-115); Potassium 4.4 mmol/L (3.5-5.1); Sodium 136 mmol/L (136-145)
[2019-06-26] MEDS: Furosemide 40 MG TAB PO SCH ×2 (06:12→14:06)
[2019-06-26] MEDS: Calcium Carbonate + Vit D 1 TAB PO SCH ×2 (09:42→16:05)
[2019-06-26] MEDS: Allopurinol 100 MG TAB PO SCH (09:42)
[2019-06-26] MEDS: Potassium Chloride 10 MEQ TAB PO SCH (09:42)
[2019-06-26] MEDS: Amlodipine 10 MG TAB PO SCH (09:42)
[2019-06-26] MEDS: Heparin 5,000 UNITS/ML VIAL SC SCH ×3 (09:43→19:39)
[2019-06-26] MEDS: hydrALAZINE 25 MG TAB PO SCH ×3 (09:43→19:40)
[2019-06-26] MEDS: Multivit, Therapeutic 1 TAB PO SCH (09:43)
[2019-06-26] MEDS: Aspirin 81 mg Enteric Coated Tablet PO SCH (09:43)
[2019-06-26] MEDS: Pioglitazone HCl 15 MG TAB PO SCH (09:43)
[2019-06-26] MEDS: traMADol HCl 50 MG TAB PO SCH ×2 (09:44→19:40)
[2019-06-26] MEDS: Sodium Chloride 0.9% 1,000 ML IV SCH ×2 (09:49→18:21)
--- NOTE | 2019-06-26 10:54 | NM ---
NUCLEAR MEDICINE CARDIAC MYOCARDIAL PERFUSION SPECT: DATE: 06/24/2019 HISTORY: 69-year-old male with dyspnea. This is being submitted for dictation for the first time on 06/26/2019. TECHNIQUE: Number of days: 1 Rest study: Technetium 99m-sestamibi (Cardiolite) dose:28.5 mCi Stress study: Not performed. Patient was taken to catheter lab instead. FINDINGS: CARDIAC (MYOCARDIAL PERFUSION) SPECT On the rest images, there is a moderate to large perfusion defect at the lateral wall, encroaching up on the inferior lateral wall. IMPRESSION: 1) incomplete study. Stress study was canceled. 2) moderate to large lateral wall infarction/scar.
[2019-06-26] MEDS ORDERED: Iopamidol 370 76% 100 ML VIAL ONE (11:23)
--- NOTE | 2019-06-26 11:58 | CON ---
DATE OF CONSULTATION: 06/26/2019 ADDITIONAL REFERRING PHYSICIAN: Sawyer العلي MD HISTORY OF PRESENT ILLNESS: I am seeing Mr. Dominguez at our [facility] Telemetry Floor as an Electrophysiology cloud consultant. His problems are; 1. Episodes of Mobitz type 1 second-degree AV block, on occasion 2:1 AV block is seen. 2. Nonsustained wide-complex tachycardia, likely ventricular tachycardia. 3. History of coronary artery disease with remote stent placement in 1995. a. Preserved LVEF by echo on 06/24/2019. It is 60% to 65%, diastolic dysfunction, mild MR and TR, and left atrial enlargement noted. 4. Morbid obesity. 5. Likely sleep apnea. 6. Diabetes, hypertension, and hyperlipidemia. 7. History of smoking. ALLERGIES: CODEINE. MEDICATIONS: At home include; 1. Pioglitazone. 2. Amlodipine. 3. Furosemide. 4. Ezetimibe. 5. Lipitor. 6. Tramadol. 7. Esomeprazole. 8. Nitroglycerin. 9. Potassium chloride. 10. Aspirin. 11. Allopurinol. 12. Linzess. 13. Liraglutide. 14. Hydralazine. SUBJECTIVE: Mr. Dominguez is here with progressive dyspnea for a couple of days prior to admit. Also some leg swelling noted. His CT of the chest was negative for pulmonary embolism. He was admitted with diagnosis of heart failure exacerbation. While on telemetry, it was noted to have episodic AV blocks mostly at nighttime, but at time for stress testing, also AV block seen while getting ready for a stress test. He does have occasional mild palpitation sensation, has some dizziness on standing up on occasion, but does not pass out. He has no full loss of consciousness spells. Denies true angina. No stroke-like symptoms. No neurological deficits and rest of 12-point review of system unremarkable. PAST MEDICAL HISTORY: As above. He has history of obstructive sleep apnea on CPAP. He had frequent 2:1 blocks while sitting off CPAP in the hospital. Prior left heart catheterization and stenting was performed after myocardial infarction in 1995 due to an occluded OM. Severe RCA lesion in the year 1999 was thought to be secondary spasm, does not have any stents. Also has remote history of atrial flutter post ablation in 2006. SOCIAL HISTORY: He is . in room. He is a smoker. Denies EtOH or drug abuse. FAMILY HISTORY: Not contributory. OBJECTIVE DATA: VITAL SIGNS: Blood pressure currently 144/80, heart rate 76, respirations 18, and temperature 97.7 degrees Fahrenheit. GENERAL: Reveals an alert, oriented, morbidly obese man, in no apparent distress. NECK: Supple. Jugular veins not distended. CHEST: Coarse without crackles. HEART: Sounds are regular to rate and rhythm. Distant. No murmur or gallop is appreciated. ABDOMEN: Benign and obese. Bowel sounds are positive. No masses are palpable. EXTREMITIES: Lower extremity is 0 to 1+ edema bilaterally. NEUROLOGIC: The patient is nonfocal. MUSCULOSKELETAL: Without joint swelling or deformity. SKIN: Without rash. DATABASE: EKG is reviewed. Initial EKG reveals a sinus rhythm with occasional nonconducted PACs at a rate of 62 beats per minute. Subsequent EKGs reveals sinus rhythm, progressive ME prolongation, and Mobitz type 1 AV blocks are seen. Short episode of 2:1 AV block is also noted. Also wide-complex rhythm was seen consistent with ventricular tachycardia, rare PVCs, similar morphology are seen up to 22 beats the longest in duration. LABORATORY DATA: Sodium 136, potassium 4.4, BUN is 26, and creatinine 1.5. The troponin I's are 0.01 consecutively. Chest x-ray on admission reveals bibasilar atelectasis and scarring. ASSESSMENT AND PLAN: Mr. Dominguez is a 69-year-old man with remote history of coronary artery disease, remote history of atrial flutter post ablation also episode of atrial fibrillation with slow conduction noted in a prior consultation in 2016. This is in setting of abdominal discomfort and he also have currently preserved left ventricular systolic function. He uses continuous positive airway pressure for sleep apnea. The cause of his admission was more diastolic heart failure related fluid overload, which is improving now. On telemetry, though he did develop arrhythmias. 1. He has recurrence of a previously noted Mobitz type 1, second-degree AV block on occasion 2:1 atrioventricular block is seen. QRS is narrow. Infra-Hisian conduction system is less likely to be involved. The symptoms are currently mild enough not to recommend pacemaker. 2. Nonsustained wide-complex tachycardia. I agree with reconsidering ischemic workup. Should it be negative, I would continue the current beta-mesha dose and consider monitoring as an outpatient for, especially if further symptoms occur. He is a suboptimal ablation candidate. I think the recent benefit ratio for implantable cardioverter-defibrillator implant is not appropriate for recommending device at this time. 3. Morbid obesity, weight loss is strongly recommended. 4. Diastolic heart failure as per Dr. Knight. Thank you again for letting me to participate in the care of this patient. Job ID: [id number]
[2019-06-26] MEDS ORDERED: Heparin (Artline) 1,000 ML ONE (13:50)
[2019-06-26] MEDS ORDERED: Lidocaine 1% (PF) 30 ML VIAL ONE (13:50)
[2019-06-26] MEDS ORDERED: Nitroglycerin 100MG/250ML BOT 250 ML ONE (14:19)
[2019-06-26] MEDS ORDERED: Verapamil 5 MG/2 ML VIAL ONE (14:19)
[2019-06-26] MEDS ORDERED: Heparin 10,000 UNITS/1 ML VIAL ONE (14:19)
[2019-06-26] MEDS ORDERED: Midazolam HCl 2 mg/2 ml Vial ONE (14:47)
[2019-06-26] MEDS ORDERED: Fentanyl 100 MCG/2 ML VIAL ONE (14:47)
--- NOTE | 2019-06-26 15:37 | PDOC.HOSPP ---
- Subjective Encounter Date: 06/26/19 Encounter Time: 13:00 Subjective: Patient seen and examined for SOB. No CP. No new complaints. No overnight events - Objective Vital Signs & Weight: Vital Signs (12 hours) Temp Pulse Resp BP Pulse Ox 06/26/19 11:22 98.2 F 70 18 153/79 H 96 06/26/19 07:06 97.7 F 76 18 144/80 H 96 06/26/19 04:16 97.8 F 78 14 171/84 H 98 Weight Weight 321 lb 11.2 oz I&O: 06/25/19 06/26/19 06/27/19 06:59 06:59 06:59 Intake Total 1250 1270 Output Total 1775 1325 Balance -525 -55 Result Diagrams: 06/25/19 08:17 06/26/19 04:15 Additional Labs: Accuchecks 06/26/19 06/26/19 06/25/19 11:55 10:18 20:53 POC Glucose 101 127 H 181 H 06/25/19 16:42 POC Glucose 111 H EKG Reviewed by me: Yes (Tele SR/Av block) Hospitalist ROS - Review of Systems Respiratory: denies: cough, dry, shortness of breath, hemoptysis, SOB with excertion, pleuritic pain, sputum, wheezing, other Cardiovascular: denies: chest pain, palpitations, orthopnea, paroxysmal noc. dyspnea, edema, light headedness, other - Medication Medications: Active Medications Generic Name Dose Route Start Last Admin Trade Name Freq PRN Reason Stop Dose Admin Allopurinol 200 mg 06/25/19 09:00 06/26/19 09:42 Zyloprim PO Not Given DAILY [facility] Amlodipine Besylate 10 mg 06/25/19 09:00 06/26/19 09:42 Norvasc PO Not Given DAILY [facility] Aspirin 81 mg 06/25/19 09:00 06/26/19 09:43 Ecotrin PO Not Given DAILY [facility] Atorvastatin Calcium 80 mg 06/24/19 21:00 06/25/19 20:40 Lipitor PO 80 mg HS CHITRA Administration Calcium/Vitamin D 1 tab 06/26/19 08:00 06/26/19 09:42 Caltrate 600 + Vit D PO Not Given BID-WM [facility] Ezetimibe 10 mg 06/24/19 21:00 06/25/19 20:42 Zetia PO 10 mg HS CHITRA Administration Furosemide 40 mg 06/24/19 14:00 06/26/19 14:06 Lasix PO Not Given 0700,1400 [facility] Heparin Sodium (Porcine) 5,000 units 06/24/19 09:00 06/26/19 14:07 Heparin SC Not Given TID CHITRA Hydralazine HCl 25 mg 06/24/19 15:00 06/26/19 09:43 Apresoline PO Not Given TID [facility] Sodium Chloride 1,000 mls @ 100 mls/hr 06/26/19 09:45 06/26/19 09:49 Normal Saline 0.9% IV 1,000 mls .Q10H CHITRA Administration Multivitamins 1 tab 06/26/19 09:00 06/26/19 09:43 Theragran PO Not Given DAILY [facility] Linaclotide [Linzess 1 each 06/25/19 07:30 06/26/19 09:42 ] 290 Mcg PO Not Given DAILY-AC [facility] Pioglitazone HCl 15 mg 06/25/19 09:00 06/26/19 09:43 Actos PO Not Given DAILY [facility] Potassium Chloride 10 meq 06/25/19 08:00 06/26/19 09:42 Klor-Con 10 PO Not Given QAM-WM [facility] Simethicone 80 mg 06/24/19 10:49 06/24/19 11:23 Mylicon Chewable PO 80 mg [facility] PRN Administration Gas Pain Tramadol HCl 100 mg 06/24/19 21:00 06/26/19 09:44 Ultram PO Not Given BID CHITRA - Exam General Appearance: NAD Neck: supple, no JVD Heart: RRR, no gallops Respiratory: CTAB, no rales Gastrointestinal: soft, non-distended Extremities: no cyanosis Hosp A/P - Plan DVT proph w/heparin, DVT proph w/SCDs 1. Shortness of breath, multifactorial. 2. Second-degree AV block Mobitz type 2. 3. Wide complex tachycardia. 4. Obstructive sleep apnea, not compliant with CPAP. 5. Morbid obesity with a BMI of 45.5. 6. Acute kidney injury on chronic kidney disease stage 3. 7. Chronic normocytic normochromic anemia. 8. Hypertension. 9. Hyperlipidemia. 10. Diabetes mellitus type 2. 11. Coronary artery disease, status post stent placement. 12. Chronic diastolic heart failure. PLAN: Cath today EP/Cardio input appreciated Insulin sliding scale Cont Lasix and other meds as above AM labs
[2019-06-26] MEDS ORDERED: Dextrose 50% Abboject 50 ML SYRINGE SLOW IVP PRN (15:42)
[2019-06-26] MEDS ORDERED: Dextrose 5% in Water 1,000 ML IV PRN (15:42)
[2019-06-26] MEDS ORDERED: Insulin Regular 300 UNITS/3 ML VIAL SC PRN ×2 (15:42)
[2019-06-26] MEDS: Ezetimibe 10 MG TAB PO SCH (19:41)
[2019-06-26] MEDS: Atorvastatin Calcium 40 MG TAB PO SCH (19:42)
[2019-06-27 05:25] LABS: #Eosinphils 0.2 thou/uL (0.0-0.7); #Lymphocytes 1.2 thou/uL (1.20-3.40); #Monocytes 0.7 thou/uL (0.11-0.59); #Neutrophils 5.2 thou/uL (1.40-6.50); %Basophils 0.3 % (0.0-1.0); %Eosinophils 2.4 % (0.0-10.0); %Lymphocytes 16.5 % (21.0-51.0); %Monocytes 9.1 % (0.0-10.0); %Neutrophils 71.8 % (42.0-75.0); Hemoglobin 12.4 g/dL (14.0-18.0); Mean Corpuscular Hemoglobin 28.5 pg (27.0-31.0); Mean Corpuscular Volume 89.2 fL (78.0-98.0); Mean Platelet Volume 8.8 fL (7.4-10.4); Platelet Count 196 thou/uL (130-400); RBC Distribution Width 12.3 % (11.5-14.5); Red Blood Cell (RBC) Count 4.36 mill/uL (4.70-6.10); White Blood Cell (WBC) Count 7.3 thou/uL (4.8-10.8)
[2019-06-27 05:36] LABS: Anion Gap 11 mmol/L (10-20); BUN (Urea Nitrogen) 21 mg/dL (8.4-25.7); Calc. Creatinine Clearance 95 mL/min (70-130); Carbon Dioxide 28 mmol/L (23-31); Chloride 102 mmol/L (98-107); Estimated GFR-MDRD 56; Glucose 120 mg/dL (80-115); Potassium 4.2 mmol/L (3.5-5.1); Sodium 137 mmol/L (136-145)
[2019-06-27] MEDS: Furosemide 40 MG TAB PO SCH (06:43)
[2019-06-27] MEDS: Sodium Chloride 0.9% 1,000 ML IV SCH (07:52)
[2019-06-27] MEDS: Heparin 5,000 UNITS/ML VIAL SC SCH ×2 (08:18→08:28)
[2019-06-27] MEDS: Amlodipine 10 MG TAB PO SCH (08:27)
[2019-06-27] MEDS: Multivit, Therapeutic 1 TAB PO SCH (08:27)
[2019-06-27] MEDS: Allopurinol 100 MG TAB PO SCH (08:27)
[2019-06-27] MEDS: Calcium Carbonate + Vit D 1 TAB PO SCH (08:27)
[2019-06-27] MEDS: traMADol HCl 50 MG TAB PO SCH (08:27)
[2019-06-27] MEDS: Potassium Chloride 10 MEQ TAB PO SCH (08:27)
[2019-06-27] MEDS: Aspirin 81 mg Enteric Coated Tablet PO SCH (08:27)
[2019-06-27] MEDS: hydrALAZINE 25 MG TAB PO SCH (08:28)
[2019-06-27] MEDS: Pioglitazone HCl 15 MG TAB PO SCH (08:29)
--- NOTE | 2019-06-27 12:06 | PQF ---
JAQUELINE PARK MALIK MD [id number] [id number] CLINICAL DOCUMENTATION IMPROVEMENT CLARIFICATION FORM: ICD-10 Updated PLEASE DO AN ADDENDUM TO THE PROGRESS NOTE WITH ANY DOCUMENTATION UPDATES OR ADDITIONS AND CARRY THROUGH TO DC SUMMARY. THANK YOU. DATE: 06/27/19 ATTN: Dr. Obando Please exercise your independent, professional judgment in responding to the clarification form. Clinical indicators are provided on the bottom of this form for your review Please check appropriate box(s): Conflicting documentation was noted in the Medical Record, please clarify if patient is being treated/monitored for: [ ] Chronic diastolic heart failure (diagnosis #1) [ x ] Acute on chronic diastolic heart failure (diagnosis #2) [ ] Other diagnosis [ ] Unable to determine In addition, please specify: Present on Admission (POA): [x ] Yes [ ] No [ ] Unable to determine For continuity of documentation, please document condition throughout progress notes and discharge summary. Thank You. CLINICAL INDICATORS - SIGNS / SYMPTOMS/ LABS / RESULTS AND LOCATION IN EMR [facility] "SOB, etiology not clear, congestive heart failure?" 06/24 Zohra: "acute on chronic diastolic HF" 06/26 Leora: "Preserved LVEF by echo on 06/24/19. He was admitted with diagnosis of heart failure exacerbation. Also some leg swelling noted. The cause of his admission was more diastolic heart failure with remote history of CAD." 06/25 Topher: "GREGORIO on CKD 3, chronic diastolic heart failure" RISK FACTORS / RESULTS AND LOCATION IN EMR [facility]N, CAD" "CKD 3" per 06/25 Dr. Obando note TREATMENT / RESULTS AND LOCATION IN EMR Telemetry 06/24 orders Echo 06/24 orders Administration of BB--> metoprolol 25 po daily 06/27 per orders IV or PO diuretics--> 06/24 Lasix 40 mg IVP x2; 06/24 to date Lasix 40mg po BID per orders Cardiology consult 06/24 orders (This form is maintained as a part of the permanent medical record) 2014 [employer] All Rights Reserved Marce Frias RN, BSN, CCDS [email or web address]
[2019-06-27 12:27] VITALS: BP 147/71; TEMP 98.5
--- NOTE | 2019-06-27 16:43 | PDOC.CPN ---
- Subjective Date: 06/27/19 Time: 08:00 Interval history: EP PROGRESS NOTE: 06/27/19 Follow up for mobitz type 1 second degree AVB, NSVT. No new cardiac concerns today. ANticipates DC later. - Review of Systems General: denies: fever/chills, weight/appetite/sleep changes, night sweats, fatigue Respiratory: denies: cough, congestion, shortness of breath, exercise intolerance Cardiovascular: denies: chest pain, palpitation, edema, paroxysmal nocturnal dyspnea, orthopnea Gastrointestinal: denies: nausea, vomiting, diarrhea, constipation, abd pain, GI bleeding Neurological: denies: numbness, syncope, seizure, weakness - Objective Allergies/Adverse Reactions: Allergies Allergy/AdvReac Type Severity Reaction Status Date / Time codeine Allergy Verified 06/24/19 02:34 lettuce Allergy Verified 06/24/19 02:53 Vital Signs & Weight: Vital Signs Temp Pulse Resp BP Pulse Ox 06/27/19 11:14 98.5 F 81 16 147/71 H 96 06/27/19 08:28 68 06/27/19 08:27 68 06/27/19 07:20 97.9 F 68 16 168/79 H 95 Weight 319 lb 11.2 oz - Physical Exam General: alert & oriented x3, appears well, no apparent distress HEENT: mucus membranes moist, normocephaly Neck: supple neck, midline trachea, no JVD/HJR, no masses, no bruit, no lymphadenopathy, no thromegaly Cardiac: regular rate and rhythm, no murmur, regular rate, regular rhythm Lungs: clear to auscultation, normal breath sounds, normal exam, no wheeze, rales, rhonchi Neuro: cranial nerve 2-12 intact, grossly intact, no lateralizing findings Abdomen: unremarkable, active bowel sounds, non-tender Extremities: no cyanosis, no clubbing, no edema Skin: clear, ulceration - Labs Result Diagrams: 06/27/19 04:23 06/27/19 04:23 Troponin/CKMB Troponin I Less than 0.010 ng/mL (< 0.028) 06/24/19 04:32 - Telemetry Sinus rhythms and dysrhythmias: sinus rhythm - Assessment/Plan Assessment/Plan: 1. Diastolic HF 2. Wide complex tachycardia, likely NSVT -consider ischemic workup - beta blockers - outpatient monitor - not appropriate for ICD at this time 3. MOrbid obesity - weight loss recommended 4. Second degree AV block, mobitz type 1 -narrow QRS Continue beta mesha therapy for NSVT. Asymptomatic with mobitz 1. No indication for PPM or ICD at this time. OK to DC home
--- NOTE | 2019-06-27 17:29 | DIS ---
DATE OF ADMISSION: 06/25/2019 DATE OF DISCHARGE: 06/27/2019 DISCHARGE DISPOSITION: Home. FOLLOWUP: 1. Follow up with primary care physician, Dr. Summer Rosas in 1 week. 2. Follow up with Cardiology, Dr. Noah Knight and Electrophysiology, Dr. Corey as scheduled. 3. Follow up with Dr. Bell as outpatient for followup on sleep apnea. ALLERGIES: 1. CODEINE. 2. LETTUCE. DISCHARGE MEDICATIONS: Toprol-XL 25 mg daily. All other home medications were left unchanged. The patient was seen and examined on the day of discharge. Denies any new complaints. No chest pain, shortness of breath, or palpitations reported. DIAGNOSTIC TESTS: Troponin was negative. Creatinine on admission 1.95, at discharge 1.5. Hemoglobin 12.4. Influenza testing was negative. Chest x-ray on admission was negative for infiltrate. CT angiogram of the chest was negative for pulmonary embolism. Echocardiogram showed left ventricular ejection fraction 60% to 65% with grade 1/3 diastolic dysfunction and mild tricuspid regurgitation. Cardiac catheterization on June 25, 2019, showed mild coronary artery disease. Medical therapy was recommended. INPATIENT CONSULTANTS: 1. Cardiology, Dr. Noah Knight. 2. Electrophysiology, Dr. Corey. BRIEF HOSPITAL COURSE: The patient is a 69-year-old male with morbid obesity; diabetes mellitus, type 2; hypertension; and hyperlipidemia, presented to the hospital with shortness of breath. He was admitted to the telemetry unit for shortness of breath. His troponins were negative. His echocardiogram was consistent with diastolic dysfunction with normal ejection fraction of 60% to 65%. While on the telemonitor, the patient had several episodes of high-degree AV blocks. He was evaluated by Cardiology and Electrophysiology. He underwent cardiac catheterization that showed mild coronary artery disease. He has been started on low-dose beta-mesha due to intermittent nonsustained wide-complex tachycardia. He has been cleared by Cardiology and Electrophysiology for discharge. FINAL DIAGNOSES: 1. Shortness of breath, probably secondary to [id number] diastolic heart failure. 2. High-degree atrioventricular block with wide-complex tachycardia, probably secondary to obstructive sleep apnea. 3. Obstructive sleep apnea, not compliant with CPAP. The patient was advised to follow up with Dr. Bell as outpatient. 4. Morbid obesity with a BMI of 45.5. 5. Acute kidney injury on chronic kidney disease, stage 3, improved. Repeat basic metabolic profile after 1 week is recommended. Primary care physician advised to follow. 6. Chronic normocytic normochromic anemia. 7. Hypertension. 8. Hyperlipidemia. 9. Diabetes mellitus, type 2. 10. Coronary artery disease, status post stent. Plan of care was discussed with the patient and the family in detail. They stated understanding. Job ID: [id number]
== END 2019-06-27 13:34 | disposition home or self-care (01) | DRG 286 ==
LOC: ERS 23:32 → 2SW 06-24 01:22 → OBSVTOIN 06-25 13:52
PROVIDERS: ADMIT Internal Medicine; ATTEND Internal Medicine
PROC: 4A023N7 Measurement of Cardiac Sampling and Pressure, Left Heart, Percutaneous Approach (ICD-10-PCS; principal; 2019-06-26)
PROC: B2111ZZ Fluoroscopy of Multiple Coronary Arteries using Low Osmolar Contrast (ICD-10-PCS; 2019-06-26)
DX: I13.0 Hypertensive heart and chronic kidney disease with heart failure and stage 1 through stage 4 chronic kidney disease, or unspecified chronic kidney disease (principal); I50.33 Acute on chronic diastolic (congestive) heart failure; Z68.42 Body mass index [BMI] 45.0-49.9, adult; N17.9 Acute kidney failure, unspecified; I44.1 Atrioventricular block, second degree; N18.3 Chronic kidney disease, stage 3 (moderate); E11.22 Type 2 diabetes mellitus with diabetic chronic kidney disease; E66.01 Morbid (severe) obesity due to excess calories; D64.9 Anemia, unspecified; I25.10 Atherosclerotic heart disease of native coronary artery without angina pectoris; E78.5 Hyperlipidemia, unspecified; I07.1 Rheumatic tricuspid insufficiency; Z95.5 Presence of coronary angioplasty implant and graft; G47.30 Sleep apnea, unspecified; K21.9 Gastro-esophageal reflux disease without esophagitis; I25.2 Old myocardial infarction; F17.200 Nicotine dependence, unspecified, uncomplicated
CPT/HCPCS: 36415; 36416; 71045; 71275; 78451; 80048; 80053; 81003; 83735; 83880; 84443; 84484; 85025; 85379; 87804; 93005; 93306; 93458; 94640; 94760; 99152; A9500; C1769; J1644; J1940; J2001; J2250; J3010; J3475; J7620; Q9967

== ENCOUNTER 2019-07-15 07:59 | Emergency (ER) | payer MEDICARE, MEDICAID ==
--- NOTE | 2019-07-15 08:32 | RAD ---
Right hand:4 views INDICATIONS:Hand pain with swelling COMPARISON:None FINDINGS: Moderate degenerative change at the first carpal metacarpal joint. Metacarpals appear intact. Phalanges appear intact. MCP joints appear unremarkable. Minimal degenerative change at the IP joints. No erosive change. No e vidence of inflammatory arthropathy. No soft tissue abnormality. IMPRESSION: Moderate DJD at the first carpal metacarpal joint. No acute abnormality.
[2019-07-15] MEDS ORDERED: predniSONE 20 MG TAB ONE (09:03)
== END 2019-07-15 09:05 | disposition home or self-care (01) ==
LOC: ERS 07:59
DX: M10.9 Gout, unspecified (principal); I11.0 Hypertensive heart disease with heart failure; I50.9 Heart failure, unspecified; I25.10 Atherosclerotic heart disease of native coronary artery without angina pectoris; K21.9 Gastro-esophageal reflux disease without esophagitis; E11.9 Type 2 diabetes mellitus without complications; I25.2 Old myocardial infarction; E78.5 Hyperlipidemia, unspecified; Z79.899 Other long term (current) drug therapy; Z79.82 Long term (current) use of aspirin
CPT/HCPCS: J7512

== ENCOUNTER 2019-09-25 08:03 | Outpatient (CLI) | payer MEDICARE, MEDICAID ==
--- NOTE | 2019-09-25 09:00 | RAD ---
LEFT KNEE 2 VIEWS: HISTORY: Knee pain. FINDINGS: There are severe arthritic changes of the knee. There is marked lateral compartment narrowing and pr ominent patellofemoral degenerative spur formation and also medial compartment narrowing. No joint e ffusion. Vascular calcifications are seen. IMPRESSION: Severe osteoarthritic changes of the knee. POS: [facility]
--- NOTE | 2019-09-25 09:01 | RAD ---
RIGHT KNEE 2 VIEWS: HISTORY: Knee pain. FINDINGS: There is marked medial compartment narrowing. There is also a fairly prominent patellofemoral degene rative spur formation and lateral compartment degenerative changes. IMPRESSION: Marked arthritic changes of the right knee. Changes are much less severe than on the opposite knee. POS: [facility]
--- NOTE | 2019-09-25 09:03 | RAD ---
LUMBAR SPINE SERIES WITH OBLIQUES 4 VIEWS: HISTORY: Lumbar radiculopathy. FINDINGS: The L1 vertebral body shows some mild wedge-shaped deformity. This has been present on a previous study. The degenerative disk narrowing at the L4-5 and L5-S1 levels appears to have progress ed slightly as compared to the prior exam. Degenerative facet changes are noted. Extensive vascular calcifications are seen. IMPRESSION: Marked arthritic changes of the lower lumbar spine. I believe that the disk narrowing has progressed slightly as compared to the previous 2018 study. The compression changes of the L1 vertebral body a re stable. POS: [facility]
== END 2019-09-25 08:04 | disposition home or self-care (01) ==
LOC: BICRAD 08:03
PROVIDERS: ATTEND Internal Medicine Addiction Medicine
DX: M47.26 Other spondylosis with radiculopathy, lumbar region (principal); M25.512 Pain in left shoulder; M17.0 Bilateral primary osteoarthritis of knee; M48.061 Spinal stenosis, lumbar region without neurogenic claudication
CPT/HCPCS: 72110

== ENCOUNTER 2019-10-29 23:56 | Observation (INO) | payer MEDICARE, MEDICAID ==
[2019-10-30 00:29] LABS: #Eosinphils 0.1 thou/uL (0.0-0.7); #Lymphocytes 1.3 thou/uL (1.20-3.40); #Monocytes 0.8 thou/uL (0.11-0.59); #Neutrophils 3.2 thou/uL (1.40-6.50); %Basophils 0.6 % (0.0-1.0); %Eosinophils 2.6 % (0.0-10.0); %Lymphocytes 23.9 % (21.0-51.0); %Monocytes 13.7 % (0.0-10.0); %Neutrophils 59.3 % (42.0-75.0); Hemoglobin 12.2 g/dL (14.0-18.0); Mean Corpuscular HGB CONC 32.2 g/dL (32.0-36.0); Mean Corpuscular Hemoglobin 28.5 pg (27.0-31.0); Mean Corpuscular Volume 88.4 fL (78.0-98.0); Platelet Count 164 thou/uL (130-400); RBC Distribution Width 12.5 % (11.5-14.5); White Blood Cell (WBC) Count 5.5 thou/uL (4.8-10.8)
[2019-10-30 01:02] LABS: ALT (SGPT) 17 U/L (8-55); AST (SGOT) 17 U/L (5-34); Albumin 3.8 g/dL (3.4-4.8); Alkaline Phosphatase 102 U/L (40-110); Anion Gap 12 mmol/L (10-20); BUN (Urea Nitrogen) 23 mg/dL (8.4-25.7); Bilirubin, Total 0.5 mg/dL (0.2-1.2); CK (CPK) 171 U/L (30-200); Calc. Creatinine Clearance 0 mL/min (70-130); Calcium 8.8 mg/dL (7.8-10.44); Carbon Dioxide 24 mmol/L (23-31); Chloride 109 mmol/L (98-107); Estimated GFR-MDRD 53; Globulin 2.5 g/dL (2.4-3.5); Glucose 130 mg/dL (80-115); Potassium 4.2 mmol/L (3.5-5.1); Protein, Total 6.3 g/dL (5.8-8.1); Sodium 141 mmol/L (136-145)
[2019-10-30 01:15] LABS: Bilirubin Negative (Negative); Blood, Urine Negative (Negative); Clarity Clear (Clear); Glucose, Urine (Dipstick) Negative (Negative); Leukocyte Negative (Negative); Nitrite Negative (Negative); Protein, Urine (Dipstick) Negative (Neg-Trace); Urobilinogen 0.2 mg/dL (Less than 2)
[2019-10-30] MEDS ORDERED: Mag-Al 1200 mg/1200 mg/30 ML UDCUP ONE (01:34)
[2019-10-30] MEDS ORDERED: Lidocaine Viscous Sol 2% 15 ml UD Cup ONE (01:34)
[2019-10-30] MEDS ORDERED: Nitroglycerin 0.4 MG TAB (25 Tab Bottle) PO PRN (03:05)
[2019-10-30] MEDS ORDERED: Aspirin 325 MG TAB PO SCH (03:15)
[2019-10-30] MEDS ORDERED: Furosemide 100 MG/10 ML VIAL SLOW IVP SCH ×3 (03:45→14:00)
[2019-10-30 03:52] LABS: Troponin I 0.025 ng/mL (< 0.028)
--- NOTE | 2019-10-30 04:07 | HP ---
CHIEF COMPLAINT: Shortness of breath. HISTORY OF PRESENT ILLNESS: Mr. Dominguez is a 69-year-old male with past medical history of congestive heart failure, morbid obesity, coronary artery disease, diabetes mellitus type 2, myocardial infarction, among others, presents to the emergency room withshortness of breath and worsening bilateral leg swelling for the past 3 days. The patient is taking 40 mg of p.o. Lasix twice a day. Denies chest pain, nausea, vomiting, or abdominal pain. Workup in the emergency room, the patient was bradycardic with heart rate in the low 40s. Initial troponin is negative. Chest x-ray, no acute finding. The patient is being admitted to hospital for further management. PAST MEDICAL HISTORY: As mentioned above in history present illness. PAST SURGICAL HISTORY: Cardiac stent x2. FAMILY HISTORY: Reviewed and noncontributory. SOCIAL HISTORY: Denies smoking, alcohol drinking, or drug abuse. FAMILY HISTORY: Reviewed and noncontributory. ALLERGIES: ALLERGIC TO CODEINE AND LETTUCE. HOME MEDICATIONS: Please see home medication reconciliation form for updated medications. REVIEW OF SYSTEMS: Review of 14 systems negative except what is mentioned in history of present illness. PHYSICAL EXAMINATION: GENERAL: The patient is awake, alert, in moderate distress. Morbidly obese. VITAL SIGNS: Blood pressure 130/78, pulse is 48, respiratory rate is 19, temperature is 97.8, pulse oximetry 97%. HEAD AND NECK: Normocephalic, atraumatic. NECK: Supple. CHEST: Decreased air entry bilaterally. HEART: Bradycardic. ABDOMEN: Obese, soft. Bowel sounds present. NEUROLOGIC: Awake, alert, and oriented x3. PSYCHIATRIC: Unable to assess his extremities. 3+ pedal edema. No clubbing. No cyanosis. LABORATORY DATA: As mentioned above in history of present illness. ASSESSMENT: 1. Acute congestive heart failure exacerbation. 2. Acute shortness of breath. 3. Morbid obesity with BMI more than 40. 4. Coronary artery disease. 5. Diabetes mellitus type 2. 6. Hypertension. 7. Bradycardia. PLAN: 1. Admit. 2. Tele monitor. 3. Serial troponins. 4. IV diuresis. 5. Consult patient's towel folder in a.m. for evaluation and further recommendations. 6. Reconcile home medications. 7. DVT prophylaxis as appropriate. 8. Expected length of stay, at least 1 midnight if patient is stable and further workup negative. Job ID: [id number]
[2019-10-30 05:12] VITALS: BMI 47.3
[2019-10-30 07:19] LABS: Troponin I 0.028 ng/mL (< 0.028)
--- NOTE | 2019-10-30 07:57 | RAD ---
CHEST 1 VIEW: INDICATION: Shortness of breath. COMPARISON: Prior exam dated 06/23/2019. FINDINGS: There is persistent hypoventilation. There is mild cardiomegaly with mild pulmonary vascular congest ion. No terence pleural effusion or pneumothorax is evident. IMPRESSION: Persistent hypoventilation. POS: [facility]
[2019-10-30] MEDS ORDERED: Aspirin 325 mg Enteric Coated Tablet PO SCH (09:00)
[2019-10-30] MEDS ORDERED: Ondansetron PF 4 MG/2 ML Vial IVP PRN (09:39)
--- NOTE | 2019-10-30 11:45 | CON ---
DATE OF CONSULTATION: HISTORY OF PRESENT ILLNESS: This is a 69-year-old gentleman with history of coronary artery disease, who presented with increasing dyspnea. The patient was seen in 1995, when he suffered a myocardial infarction. In the year 1999, he underwent a cardiac catheterization and he was found to have an occluded OM lesion,amd a 90% RCA lesion. He underwent PTCA and stent placed in this vessel. The patient had been on medical therapy. He has a history of atrial flutter and has undergone an ablation. The patient suffers from morbid obesity and he has been noncompliant with his CPAP. He presented with increasing orthopnea. The patient denied having any chest discomfort. PAST MEDICAL HISTORY: 1. Coronary artery disease. 2. History of atrial flutter. 3. Hypertension. 4. Diabetes mellitus. 5. Morbid obesity. 6. Sleep apnea. PAST SURGICAL HISTORY : Shoulder surgery. FAMILY HISTORY: Positive family history of heart disease. SOCIAL HISTORY: Nonsmoker. ALLERGIES: CODEINE. MEDICATIONS: See nursing list. REVIEW OF SYSTEMS: Ten-point system otherwise unremarkable. PHYSICAL EXAMINATION: GENERAL: This is an obese gentleman, in no acute distress. VITAL SIGNS: Blood pressure is 131/60. NECK: No jugular venous distention. LUNGS: Clear to auscultation. HEART: Regular rate and rhythm. Normal S1 and S2 with a 2/6 systolic murmur. ABDOMEN: Distended. EXTREMITIES: Showed mild bilateral edema. LABORATORY RESULTS: Sodium 141, potassium 4.2, chloride 109, bicarbonate 24, BUN 23, creatinine 1.5, and glucose 130. Troponin 0.02 and BNP was 68. Chest x-ray revealed mild cardiomegaly with mild pulmonary vascular congestion. IMPRESSION AND PLAN: 1. Congestive heart failure secondary to diastolic dysfunction. 2. Coronary artery disease status post percutaneous transluminal coronary angioplasty and stent placement. 3. Hypertension. 4. Diabetes mellitus. 5. Morbid obesity. 6. Sleep apnea. This gentleman presents with increasing edema. He has been noncompliant with his continuous positive airway pressure. It is imperative that he uses continuous positive airway pressure. From a cardiac standpoint, would recommend that he decrease the dose of his Coreg. We will follow this patient with you through his hospitalization. Job ID: [id number] MTDD
--- NOTE | 2019-10-30 12:37 | CT ---
CT OF THE ABDOMEN AND PELVIS WITH IV CONTRAST INDICATION: Abdominal pain with possible hernia COMPARISON: CTA aortic dissection protocol dated March 04, 2019 FINDINGS: ABDOMEN: Lung bases: There is bibasilar atelectasis Liver: No focal lesion. Gallbladder: Mildly contracted Pancreas: Normal. Adrenal glands: Normal. Spleen: Normal. Kidneys and ureters: Stable left renal cysts. No hydronephrosis. Mild renal vascular calcifications. Vasculature: There are moderate vascular calcifications seen involving the visualized vasculature. Lymph nodes:No lymphadenopathy. Free fluid in abdomen:No free fluid is evident. PELVIS: Small and large bowel: There are scattered colonic diverticula. There is no active diverticulitis. St able focal eventration of both hemidiaphragms. Appendix:Normal Bladder: Partially decompressed Rectal and perirectal soft tissues:Normal. Reproductive structures: Normal. Free fluid in pelvis: No free fluid is evident. Lymphadenopathy pelvis: No lymphadenopathy is evident. Osseous structures: There is a focus of heterotopic ossification involving the right pubic body. No definite acute osseous abnormality is evident. Stable compression abnormality of L1. There is sca ttered degenerative and osteoarthritic changes. Soft tissues:No ventral abdominal wall hernia is evident. There is a tiny fat-containing umbilicus he rnia. IMPRESSION: 1. Small fat-containing umbilicus hernia. 2. Stable focal eventration of both hemidiaphragms with bibasilar atelectasis. 3. Stable left renal cysts 4. Colonic diverticulosis 5. Stable mild to moderate compression abnormality of L1
[2019-10-30] MEDS ORDERED: Iopamidol 370 76% 100 ML VIAL ONE (13:37)
[2019-10-30] MEDS ORDERED: HYDROcodone/Acetaminophen 7.5/325 mg Tablet PO PRN (14:27)
[2019-10-30] MEDS ORDERED: diphenhydrAMINE 25 MG CAP PO PRN (14:27)
[2019-10-30] MEDS ORDERED: Promethazine 25 MG TAB PO PRN (14:27)
[2019-10-30] MEDS ORDERED: Nitroglycerin 0.4 MG TAB (25 Tab Bottle) SL PRN (14:27)
[2019-10-30] MEDS ORDERED: Polyethylene Glycol 3350 17 GM Packet PO SCH (16:15)
[2019-10-30 16:23] VITALS: BP 127/67; TEMP 99.1
[2019-10-30] MEDS ORDERED: Carvedilol 6.25 MG TAB PO SCH (17:00)
[2019-10-30] MEDS ORDERED: Calcium Carbonate 600 MG + Vit D TAB PO SCH (17:00)
--- NOTE | 2019-10-30 18:02 | CON ---
DATE OF CONSULTATION: 10/30/2019 REASON FOR CONSULTATION: Midepigastric and left lower quadrant abdominal pain. CONSULTING PHYSICIAN: Lay Garcia MD HISTORY OF PRESENT ILLNESS: The patient is a 69-year-old male with past medical history of congestive heart failure, morbid obesity, coronary artery disease, myocardial infarction, and diabetes, who was initially presenting with complaints of shortness of breath and bilateral lower extremity edema. Per the patient, he stated for the last week, he had been having increasing shortness of breath, both at rest and exertion in addition to increased edema of the bilateral lower extremities, which ultimately brought him to the hospital for further evaluation. However, he also states that he has been having increased left lower quadrant abdominal pain. This has been present intermittently for the last 4 to 5 months. This pain is characterized as a sharp/burning-type sensation, would radiate to the periumbilical and midepigastric regions, would last for approximately 30 to 60 minutes in duration, would occur every 3 to 4 days and reach a severity of 8/10. During the last 3 to 4 days, he noted that this pain had been becoming more frequent and was almost occurring daily. This pain is worse with lying down, eating, walking, and straining in order to have a bowel movement. The pain is better with actually having a bowel movement with defecation itself. Concerning his bowel patterns, he has a history of chronic constipation having approximately 1 solid bowel movement every 2 to 3 days associated with increased straining and pressure to the abdomen in order to facilitate defecation. He is being seen in the outpatient GI Clinic by Dr. Schmidt and was placed on Linzess daily and while on this regimen had been having more intermittent results with having a bowel movement approximately every 1 to 2 days. With the increasing left lower quadrant abdominal pain, it was also associated with increased midepigastric fullness, also characterized as a burning/aching-type sensation. He adds that his last colonoscopy was approximately 5 years ago with unknown findings during that colonoscopy, but was recommended to have a repeat colonoscopy in 5 years. Otherwise, he denies any nausea, vomiting, fevers, chills, hematemesis, melena, hematochezia, dysphagia, odynophagia, or weight loss. REVIEW OF SYSTEMS: A 10-category review of systems was obtained with all responses negative except for the pertinent positives as listed in HPI. PAST MEDICAL HISTORY: As per HPI. PAST SURGICAL HISTORY: Cardiac stent placement x2. FAMILY HISTORY: Denies any GI malignancies. SOCIAL HISTORY: Denies any tobacco, alcohol, or illicit drug use. OUTPATIENT MEDICATIONS: Reviewed. ALLERGIES: 1. CODEINE. 2. LETTUCE. PHYSICAL EXAMINATION: VITAL SIGNS: Temperature 99.1, pulse 69, blood pressure 127/67, respiratory rate 22, saturating 96% on room air. GENERAL: The patient was lying in bed, in no acute distress. Alert and oriented x4. HEENT: Normocephalic and atraumatic. NECK: Supple. No JVD or scleral icterus noted. CARDIOVASCULAR: Regular rate and rhythm with no discernible murmurs, gallops, or rubs (although heart sounds were distant). RESPIRATORY: Clear to auscultation bilaterally with no discernible wheezes or rales. ABDOMEN: Normoactive bowel sounds. Soft and nondistended, although morbidly obese abdomen. Tenderness to palpation, especially in the left lower and left upper quadrant, but also within the midepigastric region. EXTREMITIES: Trace/1+ pitting edema of the bilateral lower extremities extending to mid muñoz. LABORATORY DATA: CBC with a white blood cell count of 5.5, hemoglobin 12.2, hematocrit 38, platelets 164. Chemistry with a sodium of 141, potassium 4.2, chloride 109, CO2 of 24, BUN 23, creatinine 1.57, glucose 130, AST 17, ALT 17, alkaline phosphatase 102, total bilirubin 0.5. BNP 68. Albumin 3.8. IMAGING DATA: CT of the abdomen and pelvis was obtained on October 30, 2019, which showed mild renal vascular calcifications in addition to moderate vascular calcifications of other underlying vasculature. Scattered diverticulosis without the presence of diverticulitis was seen, and a tiny fat containing umbilical hernia was seen without evidence of incarceration/strangulation. ASSESSMENT AND PLAN: The patient is a 69-year-old male with past medical history of congestive heart failure, morbid obesity, coronary artery disease/myocardial infarction, diabetes, and chronic constipation, presenting with further exacerbation of his chronic constipation. Chronic constipation: The patient is presenting with a history of chronic constipation characterized as having approximately 1 solid bowel movement every 2 to 3 days and associated with increased straining and abdominal pressure in order to facilitate defecation. He has been to multiple bowel regimens in the past and was ultimately placed on Linzess daily as an outpatient and has even had intermittent results with that administration/regimen. Currently, he is receiving linaclotide 290 mg daily (maximum dose) and is still having intermittent results while on this regimen. With the majority of his pain in the left lower quadrant and transmission of that pain to the left upper quadrant and midepigastric region with palpation, again, the more likely explanation for his abdominal pain would be chronic constipation. Recommendations 1. We would place the patient back on Linzess 290 mg daily as part of his outpatient bowel regimen. 2. However, I would also place the patient on MiraLAX 17 g daily in addition to linaclotide to assist with further bowel movements. 3. We would recommend a higher fiber diet to facilitate defecation. 4. We would consider placing the patient on a FODMAP diet as an outpatient. Gastroesophageal reflux disease: The patient also has an underlying history of acid reflux characterized as substernal pyrosis and regurgitation. 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 He is currently taking Nexium 40 mg daily 30 to 45 minutes before breakfast; however, given his morbid obesity and onset of symptoms primarily at night, he may benefit from a dosing change to 30 to 45 minutes before dinner to provide better mode of action after dinner and while lying supine for better control of nocturnal symptoms. Recommendations: 1. We would change the patient to PPI 40 mg to 30 to 45 minutes before dinner for better nocturnal control of his acid reflux symptoms. 2. I strongly reiterated the importance of weight loss as it can severely impact acid reflux. 3. We would maintain strict acid reflux precautions, having the patient sit up and maintain in an upright posture for approximately 2 hours after meals and avoid any meals within 2 hours of bedtime. We will sign off at this time. I would have the patient follow up in the GI Clinic in 3 weeks for further monitoring of his acid reflux and chronic constipation. Please call with any additional questions. Job ID: [id number]
[2019-10-30] MEDS ORDERED: Ezetimibe 10 MG TAB PO SCH (21:00)
[2019-10-30] MEDS ORDERED: busPIRone HCl 5 MG TAB PO SCH (21:00)
[2019-10-30] MEDS ORDERED: Allopurinol 100 MG TAB PO SCH (21:00)
[2019-10-30] MEDS ORDERED: Atorvastatin Calcium 40 MG TAB PO SCH (21:00)
--- NOTE | 2019-10-30 21:28 | DIS ---
DATE OF ADMISSION: 10/30/2019 DATE OF DISCHARGE: 10/30/2019 DISCHARGE DIAGNOSES: Possible mild congestive heart failure exacerbation, bradycardia, abdominal pain secondary to constipation. CONSULTATIONS: Cardiology with Noah Knight MD and Bill Mckeon MD with GI. BRIEF HISTORY OF PRESENT ILLNESS: This is a 69-year-old male with past medical history of CHF, morbid obesity, CAD, who had presented to the emergency room with shortness of breath and increasing lower extremity swelling over the past week. The patient also had reported burning abdominal pain in his abdomen that would occur every night and that was worse with lying down, eating or walking. He denied any changes in his weight. The patient states that he was taking his Lasix 40 mg twice a day and had not missed any doses. Upon evaluation in the emergency room, the patient did have a heart rate that had gone down to the 40s. His EKG showed atrial fibrillation with controlled RVR. His BNP was unremarkable. His chest x-ray showed mild cardiomegaly and mild pulmonary vascular congestion. He was admitted for possible CHF exacerbation. HOSPITAL COURSE: Mild CHF exacerbation: The patient was admitted to the hospital with IV Lasix. He was given a total of 160 of IV Lasix. He had troponins done that were negative x3. He had a recent echocardiogram in June, which showed an EF of 60% to 65% with grade 1/3 diastolic dysfunction. Cardiology was consulted and recommended reducing his Coreg dose to 6.25 mg bid due to his bradycardia. The patient ambulated around the hallway without any hypoxia. He was discharged on his home Lasix dose. He should follow up with his PCP and Dr. Knight in a week and consider repeat chest x-ray to evaluate for resolution of mild pulmonary vascular congestion. Also consideration of a repeat echo can be done as an outpatient. Abdominal pain possibly secondary to constipation versus IBS: The patient reported some abdominal pain in his epigastric area, worse with lying down and improved with having a bowel movement. He described a persistent burning sensation and stated that he was compliant with his Nexium. GI was consulted for evaluation of an EGD. CT scan done of his abdomen and pelvis showed an umbilical hernia and diverticulosis. GI felt that the patient's pain was secondary to constipation and recommended taking MiraLAX. This is prescribed on discharge. He was resumed on his IBS medication. He is also advised to follow a low- FODMAP diet and advised to avoid eating excessive amounts of bananas since this could aggravate his constipation. He will need to follow up with GI in 3 weeks. GERD: The patient was resumed on his outpatient PPI. However, he was advised to take this 30 to 45 minutes before dinner instead of taking it in the morning. He is also advised to sleep with a few pillows underneath him and to wait 2-3 hours before lying down. He is also advised to avoid fatty foods, spicy foods, chocolate, and citrus foods. DISCHARGE PHYSICAL EXAMINATION: VITAL SIGNS: Temperature 99.1, heart rate 69, respiratory rate 22, O2 saturation 96% on room air, blood pressure 127/67. GENERAL: The patient is morbidly obese. He is in no acute distress. CVS: Regular rate and rhythm with no murmurs, rubs, or gallops. LUNGS: Clear to auscultation bilaterally. ABDOMEN: The patient has epigastric and left upper quadrant tenderness. He does have a mild umbilical hernia present. He has no rebound, guarding, or rigidity. He has normal bowel sounds. EXTREMITIES: Trace edema. PERTINENT LABORATORY DATA: CBC on 10/29: hemoglobin 12.2, which is chronic. BMP on 10/29: creatinine is 1.57, which is his baseline. LFTs :normal. Troponin I : 0.023, 0.025, 0.028. UA on 10/29: normal. IMAGING STUDIES: Chest x-ray on 10/29: shows mild cardiomegaly with borderline pulmonary vascular congestion. CT of abdomen and pelvis on 10/29: shows a small fat containing umbilical hernia. Stable left renal cyst. Bibasilar atelectasis. Colonic diverticulosis. Stable mild to moderate compression abnormality of L1. DISCHARGE CONDITION: Stable. ACTIVITY: As tolerated. DIET: Heart healthy diet. DISCHARGE MEDICATIONS: Medication changes: 1. Nexium changed to take 30 to 45 minutes prior to bedtime. 2. Coreg was reduced to 3.125 mg b.i.d. Discontinued medications: Actos. All other home medications were resumed. DISCHARGE INSTRUCTIONS: The patient should follow up with his PCP in a week and Dr. Knight in a week. He should consider repeat chest x-ray. He should follow up with Dr. Mckeon in 3 weeks for revaluation of GERD and IBS. Job ID: [id number] [facility]
[2019-10-31] MEDS ORDERED: Aspirin 325 mg Enteric Coated Tablet PO SCH (09:00)
[2019-10-31] MEDS ORDERED: Aspirin 81 mg Enteric Coated Tablet PO SCH (09:00)
--- NOTE | 2019-11-04 13:14 | EKG ---
Test Reason : Blood Pressure : / mmHG Vent. Rate : 042 BPM Atrial Rate : 042 BPM P-R Int : 186 ms QRS Dur : 080 ms QT Int : 436 ms P-R-T Axes : 037 -12 083 degrees QTc Int : 364 ms Marked sinus bradycardia Low voltage QRS Inferior infarct , age undetermined Abnormal ECG Confirmed by HO SPENCE ([id number]), video editor STEPHAN PARDO ([id number]) on 11/04/2019 1:13:53 PM Referred By: Confirmed By:HO SPENCE
--- NOTE | 2019-11-04 13:14 | EKG ---
Test Reason : Blood Pressure : / mmHG Vent. Rate : 062 BPM Atrial Rate : 074 BPM P-R Int : 000 ms QRS Dur : 080 ms QT Int : 396 ms P-R-T Axes : 000 -20 055 degrees QTc Int : 401 ms Atrial fibrillation Low voltage QRS Inferior infarct , age undetermined Abnormal ECG Confirmed by HO SPENCE ([id number]), editor & co founder STEPHAN PARDO ([id number]) on 11/04/2019 1:13:39 PM Referred By: Confirmed By:HO SPENCE
== END 2019-10-30 19:10 | disposition home or self-care (01) ==
LOC: ERS 23:56 → 2SW 10-30 02:32
PROVIDERS: ADMIT Internal Medicine; ATTEND Internal Medicine
DX: I11.0 Hypertensive heart disease with heart failure (principal); I50.31 Acute diastolic (congestive) heart failure; K59.09 Other constipation; K58.1 Irritable bowel syndrome with constipation; I25.10 Atherosclerotic heart disease of native coronary artery without angina pectoris; E11.9 Type 2 diabetes mellitus without complications; I25.2 Old myocardial infarction; G47.30 Sleep apnea, unspecified; K21.9 Gastro-esophageal reflux disease without esophagitis; K42.9 Umbilical hernia without obstruction or gangrene; Q61.02 Congenital multiple renal cysts; K57.30 Diverticulosis of large intestine without perforation or abscess without bleeding; E66.01 Morbid (severe) obesity due to excess calories; Z68.42 Body mass index [BMI] 45.0-49.9, adult; Z79.82 Long term (current) use of aspirin; Z79.84 Long term (current) use of oral hypoglycemic drugs; Z79.899 Other long term (current) drug therapy; Z88.5 Allergy status to narcotic agent; Z91.018 Allergy to other foods; Z95.5 Presence of coronary angioplasty implant and graft
CPT/HCPCS: 36415; 36416; 71045; 74177; 80053; 81003; 82550; 83880; 84484; 85025; 87804; 93005; 96374; 96375; 96376; G0378; J1940; J2405; Q9967

== ENCOUNTER 2020-01-29 08:52 | Outpatient (CLI) | payer MEDICARE, MEDICAID ==
--- NOTE | 2020-01-29 09:15 | RAD ---
XR Shoulder Lt 3 View STANDARD HISTORY: Chronic left shoulder pain FINDINGS: There are postop changes of focal shoulder arthroplasty in good position and alignment. No acute frac ture, dislocation or bony destruction is seen. No perihardware lucency is noted to suggest loosening. IMPRESSION: No acute process.
--- NOTE | 2020-01-29 12:49 | CT ---
LEFT SHOULDER CT SCAN WITHOUT IV CONTRAST: HISTORY: Left shoulder pain, prior replacement. Limited range of motion. COMPARISON: 12/23/2018. FINDINGS: Very extensive beam-hardening artifact from the dense metal prosthesis which considerably lowers the sensitivity of this study. There is some minimal motion artifact and the patient is of large body yan bitus which also lowers the sensitivity of this study. No evidence for dislocation. No evidence of periprosthetic lucency or fracture. No abnormal fluid collection. There does appear to be some gene ralized fatty infiltration of the rotator cuff muscles. IMPRESSION: Severely limited exam because of beam hardening artifact, patient's large body habitus, and some nara on artifact without dislocation or periprosthetic fracture. POS: RRE
== END 2020-01-29 08:53 | disposition home or self-care (01) ==
LOC: BICCT 08:52
DX: M25.512 Pain in left shoulder (principal); G89.29 Other chronic pain; Z96.612 Presence of left artificial shoulder joint

== ENCOUNTER 2020-05-06 08:25 | Outpatient (CLI) | payer MEDICARE, MEDICAID | END 2020-05-06 08:26 | disposition home or self-care (01) | LOC: CTENTCT 08:25 | PROVIDERS: ATTEND Otolaryngology Plastic Surgery within the Head & Neck | DX: J32.9 Chronic sinusitis, unspecified (principal) | CPT/HCPCS: 36415; 70486; 80048 ==

== ENCOUNTER 2020-09-09 14:17 | Outpatient (CLI) | payer MEDICARE, MEDICAID ==
--- NOTE | 2020-09-09 15:02 | CT ---
CT of theabdomen and pelvis: 09/09/2020 COMPARISON:10/30/2019 HISTORY:Abdominal pain TECHNIQUE: Serial axial CT imaging at5 mm intervals from thelung bases through the pubic symphysis wi thout contrast. Coronal and sagittal reformatted imaging obtained Findings:Imaged lung bases demonstrate areas of increased linear density in the inferior lingula, rig ht middle lobe, and bilateral lower lobes suggesting stable scar/volume loss. The lack of contrast media limits assessment of the imaged viscera, the vascular structures, the pablo l, and for lymphadenopathy. Stable calcification in the region of the coronary arterial vasculature and left ventricle noted. Limited evaluation of the gallbladder demonstrates no acute findings. Limited assessment of the liver , spleen, pancreas, and adrenal glands appears unremarkable. Bilateral kidneys demonstrate a lobulated configuration with multifocal cortical thinning, similar wh en compared to the prior examination. There are 2 low-density lesions within the left kidney which are unchanged when compared to studies dating back to 01/21/2018 consistent with cysts. Limited evaluation of the bowel without oral contrast media demonstrates no inflammatory change or ev idence of obstruction. The appendix is unremarkable. Multiple scattered areas of diverticulosis are seen within the colon, most prominent in the descendin g colon and sigmoid colon colon. Limited assessment of the vascular structures demonstrates multifocal atherosclerotic calcification o f the infrarenal abdominal aorta and the arterial structures of the pelvis. Limited assessment for lymphadenopathy of the abdomen/pelvis is unremarkable. Review of the osseous structures demonstrates an anterior wedge compression fracture of L1 with moder ate loss of anterior vertebral body height, stable. Stable multilevel lower lumbar spine facet hypertrophy with bilateral neural foraminal stenosis at L4-5 and L5-S1. There is disc space narrowing and vacuum disc formation at the L4-5 and L5-S1 levels. Impression:Multiple incidental findings as detailed above. No acute findings are seen within the abdo men/pelvis.
== END 2020-09-09 14:18 | disposition home or self-care (01) ==
LOC: BICCT 14:17
PROVIDERS: ATTEND Internal Medicine Gastroenterology
DX: R10.9 Unspecified abdominal pain (principal); K59.09 Other constipation; I12.9 Hypertensive chronic kidney disease with stage 1 through stage 4 chronic kidney disease, or unspecified chronic kidney disease; E11.22 Type 2 diabetes mellitus with diabetic chronic kidney disease; N18.9 Chronic kidney disease, unspecified; M48.061 Spinal stenosis, lumbar region without neurogenic claudication; M48.07 Spinal stenosis, lumbosacral region; I70.0 Atherosclerosis of aorta
CPT/HCPCS: 74176

== ENCOUNTER 2020-10-11 07:47 | Outpatient (CLI) | payer MEDICARE, MEDICAID ==
--- NOTE | 2020-10-11 08:34 | ULT ---
Right upper quadrant ultrasound: 10/11/2020 COMPARISON: None HISTORY: Epigastric pain TECHNIQUE: Multiplanar grayscale sonographic imaging of the right upper quadrant provided. FINDINGS: The pancreas is not well visualized secondary to obscuration by bowel gas and the patient b shai habitus. No focal liver lesion is evident. The hepatic parenchyma is relatively echogenic and heterogeneous. No gallbladder wall thickening, pericholecystic fluid, or discrete gallstone. Common bile duct measur es in the 2-3 mm range, within normal limits. The right kidney is somewhat ill-defined secondary to body habitus. The right kidney measures approxi mately 11.9 cm in craniocaudal dimension and demonstrates a lobulated peripheral contour with multiple areas of cortical thinning. There is a suggestion of multiple small cysts within the right k idney, measuring up to approximately 2.8 cm, not well assessed on this exam. Kidneys are better assessed on CT exam performed 09/09/2020. The activities coordinator reports a negative Mercer's sign. IMPRESSION: Technically limited study demonstrating no evidence for cholelithiasis.
== END 2020-10-11 07:48 | disposition home or self-care (01) ==
LOC: ULT 07:47
PROVIDERS: ATTEND Specialist
DX: R10.13 Epigastric pain (principal)
CPT/HCPCS: 76705

== ENCOUNTER 2020-11-13 15:19 | Outpatient (CLI) | payer MEDICARE, MEDICAID ==
[2020-11-14 02:32] LABS: SARS-CoV-2 PCR by NAA Not Detected (NotDetected)
== END 2020-11-13 15:20 | disposition home or self-care (01) ==
LOC: LABBT 15:19
PROVIDERS: ATTEND Internal Medicine Gastroenterology
DX: Z01.812 Encounter for preprocedural laboratory examination (principal); K59.09 Other constipation; R10.9 Unspecified abdominal pain; Z20.822 Contact with and (suspected) exposure to COVID-19
CPT/HCPCS: U0003; U0005; 87635

== ENCOUNTER 2020-11-18 09:35 | Day surgery (SDC) | payer MEDICARE, MEDICAID ==
[2020-11-14 13:31] VITALS: BMI 47.6
[2020-11-18] MEDS ORDERED: PROPOFOL 200 MG/20 ML VIAL ONE (12:06)
[2020-11-18] MEDS ORDERED: Lidocaine 1% PF 5 ML VIAL ONE (12:06)
== END 2020-11-18 13:30 | disposition home or self-care (01) ==
LOC: SDC 09:35
PROVIDERS: ATTEND Internal Medicine Gastroenterology
PROC: 0DBL8ZZ Excision of Transverse Colon, Via Natural or Artificial Opening Endoscopic (ICD-10-PCS; principal; 2020-11-18)
PROC: 0DJ08ZZ Inspection of Upper Intestinal Tract, Via Natural or Artificial Opening Endoscopic (ICD-10-PCS; 2020-11-18)
DX: Z12.11 Encounter for screening for malignant neoplasm of colon (principal); K63.5 Polyp of colon; K57.30 Diverticulosis of large intestine without perforation or abscess without bleeding; K59.09 Other constipation; K21.9 Gastro-esophageal reflux disease without esophagitis; G47.30 Sleep apnea, unspecified; E11.9 Type 2 diabetes mellitus without complications; E78.5 Hyperlipidemia, unspecified; I10 Essential (primary) hypertension; M06.9 Rheumatoid arthritis, unspecified; M19.90 Unspecified osteoarthritis, unspecified site; E78.00 Pure hypercholesterolemia, unspecified; E66.01 Morbid (severe) obesity due to excess calories; Z68.42 Body mass index [BMI] 45.0-49.9, adult; Z79.82 Long term (current) use of aspirin; Z79.899 Other long term (current) drug therapy; Z87.891 Personal history of nicotine dependence; Z86.010 Personal history of colon polyps; Z88.5 Allergy status to narcotic agent; Z91.018 Allergy to other foods; Z95.5 Presence of coronary angioplasty implant and graft
CPT/HCPCS: 36416; J2704

== ENCOUNTER 2020-11-27 14:11 | Inpatient (IN) | payer MEDICARE, MEDICAID ==
[2020-11-27 15:16] LABS: #Eosinphils 0.1 thou/uL (0.0-0.7); #Lymphocytes 1.1 thou/uL (1.20-3.40); #Monocytes 0.8 thou/uL (0.11-0.59); #Neutrophils 4.1 thou/uL (1.40-6.50); %Basophils 0.8 % (0.0-1.0); %Eosinophils 1.9 % (0.0-10.0); %Lymphocytes 18.2 % (21.0-51.0); %Monocytes 12.6 % (0.0-10.0); %Neutrophils 66.5 % (42.0-75.0); Mean Corpuscular HGB CONC 32.4 g/dL (32.0-36.0); Mean Corpuscular Hemoglobin 29.8 pg (27.0-31.0); Mean Corpuscular Volume 91.8 fL (78.0-98.0); Mean Platelet Volume 9.9 fL (7.4-10.4); Platelet Count 127 thou/uL (130-400); RBC Distribution Width 12.6 % (11.5-14.5); Red Blood Cell (RBC) Count 4.04 mill/uL (4.70-6.10); White Blood Cell (WBC) Count 6.2 thou/uL (4.8-10.8)
[2020-11-27 15:49] LABS: ALT (SGPT) 22 U/L (8-55); AST (SGOT) 25 U/L (5-34); Albumin 3.8 g/dL (3.4-4.8); Alkaline Phosphatase 108 U/L (40-110); Anion Gap 16 mmol/L (10-20); BUN (Urea Nitrogen) 28 mg/dL (8.4-25.7); Bilirubin, Total 0.7 mg/dL (0.2-1.2); Calc. Creatinine Clearance 0 mL/min (70-130); Calcium 8.9 mg/dL (7.8-10.44); Carbon Dioxide 26 mmol/L (23-31); Chloride 102 mmol/L (98-107); Globulin 2.7 g/dL (2.4-3.5); Glucose 129 mg/dL (80-115); Lipase 70 U/L (8-78); Potassium 3.5 mmol/L (3.5-5.1); Protein, Total 6.5 g/dL (5.8-8.1); Sodium 140 mmol/L (136-145)
[2020-11-27 16:11] LABS: CKMB 2.1 ng/mL (0-6.6)
[2020-11-27] MEDS ORDERED: Aspirin Chewable 81 MG TAB ONE (18:33)
[2020-11-27] MEDS ORDERED: Furosemide 40 MG/4 ML VIAL ONE (18:33)
[2020-11-27 19:19] LABS: Troponin I 0.027 ng/mL (< 0.028)
[2020-11-27] MEDS ORDERED: Dextrose 5% in Water 1,000 ML IV PRN (21:34)
[2020-11-27] MEDS ORDERED: Dextrose 50% Abboject 50 ML SYRINGE SLOW IVP PRN (21:34)
[2020-11-27] MEDS ORDERED: Acetaminophen 325 MG TAB PO PRN (21:34)
[2020-11-27] MEDS ORDERED: HYDROcodone/Acetaminophen 5/325 mg Tablet PO PRN (21:34)
[2020-11-27] MEDS ORDERED: HumaLOG 300 UNITS/3 ML VIAL SC PRN (21:34)
[2020-11-27] MEDS ORDERED: Ondansetron PF 4 MG/2 ML Vial IVP PRN (21:34)
[2020-11-27] MEDS ORDERED: Ondansetron ODT 4 MG TAB PO PRN (21:34)
[2020-11-27 21:56] VITALS: BMI 48.4
[2020-11-27 23:01] LABS: Troponin I 0.033 ng/mL (< 0.028)
[2020-11-28] MEDS ORDERED: Nitroglycerin 0.4 MG TAB (25 Tab Bottle) SL PRN (02:04)
[2020-11-28] MEDS ORDERED: cefTRIAXone\\ROCEPHIN 1 GM in Sodium Chloride 0.9% 100 ML IVPB SCH (03:30)
[2020-11-28] MEDS ORDERED: Azithromycin 500 MG in Sodium Chloride 0.9% 250 ML 250 ML IVPB SCH (04:00)
[2020-11-28 04:24] LABS: SARS-CoV-2 PCR by NAA Not Detected (NotDetected)
[2020-11-28 04:59] LABS: #Eosinphils 0.1 thou/uL (0.0-0.7); #Lymphocytes 1.1 thou/uL (1.20-3.40); #Monocytes 0.8 thou/uL (0.11-0.59); #Neutrophils 3.9 thou/uL (1.40-6.50); %Basophils 0.5 % (0.0-1.0); %Eosinophils 2.4 % (0.0-10.0); %Lymphocytes 18.2 % (21.0-51.0); %Monocytes 13.1 % (0.0-10.0); %Neutrophils 65.9 % (42.0-75.0); Hemoglobin 11.9 g/dL (14.0-18.0); Mean Corpuscular HGB CONC 32.5 g/dL (32.0-36.0); Mean Corpuscular Volume 92.3 fL (78.0-98.0); Mean Platelet Volume 9.2 fL (7.4-10.4); Platelet Count 154 thou/uL (130-400); RBC Distribution Width 12.5 % (11.5-14.5); Red Blood Cell (RBC) Count 3.98 mill/uL (4.70-6.10)
[2020-11-28 05:18] LABS: Anion Gap 13 mmol/L (10-20); BUN (Urea Nitrogen) 30 mg/dL (8.4-25.7); Calc. Creatinine Clearance 80 mL/min (70-130); Calcium 8.8 mg/dL (7.8-10.44); Carbon Dioxide 32 mmol/L (23-31); Chloride 101 mmol/L (98-107); Glucose 91 mg/dL (80-115); Potassium 3.5 mmol/L (3.5-5.1); Sodium 142 mmol/L (136-145)
[2020-11-28] MEDS: traMADol HCl 50 MG TAB PO SCH ×4 (08:31→21:58)
[2020-11-28] MEDS: Aspirin 81 mg Enteric Coated Tablet PO SCH (08:31)
[2020-11-28] MEDS ORDERED: hydrALAZINE 25 MG TAB PO SCH (09:00)
[2020-11-28] MEDS ORDERED: Carvedilol 6.25 MG TAB PO SCH (09:00)
[2020-11-28] MEDS ORDERED: Furosemide 40 MG/4 ML VIAL SLOW IVP SCH (09:00)
[2020-11-28] MEDS: Polyethylene Glycol 3350 17 GM Packet PO SCH ×2 (10:26→21:58)
[2020-11-28] MEDS: Furosemide 80 MG TAB PO SCH (14:10)
[2020-11-28] MEDS: hydrALAZINE 25 MG TAB PO SCH ×2 (14:10→23:29)
[2020-11-28] MEDS ORDERED: Atorvastatin Calcium 40 MG TAB PO SCH (21:00)
[2020-11-28] MEDS ORDERED: Simethicone Chewable 80 MG TAB PO SCH (23:59)
[2020-11-29] MEDS: hydrALAZINE 25 MG TAB PO SCH ×2 (00:26→08:33)
[2020-11-29] MEDS ORDERED: Magnesium Citrate 300 ML BOT PO SCH (08:15)
[2020-11-29 08:24] LABS: #Eosinphils 0.1 thou/uL (0.0-0.7); #Lymphocytes 1.1 thou/uL (1.20-3.40); #Monocytes 0.5 thou/uL (0.11-0.59); #Neutrophils 3.6 thou/uL (1.40-6.50); %Basophils 0.2 % (0.0-1.0); %Eosinophils 2.3 % (0.0-10.0); %Monocytes 9.2 % (0.0-10.0); %Neutrophils 67.2 % (42.0-75.0); Mean Corpuscular HGB CONC 32.2 g/dL (32.0-36.0); Mean Corpuscular Hemoglobin 29.8 pg (27.0-31.0); Mean Corpuscular Volume 92.4 fL (78.0-98.0); Mean Platelet Volume 9.1 fL (7.4-10.4); Platelet Count 156 thou/uL (130-400); RBC Distribution Width 12.5 % (11.5-14.5); Red Blood Cell (RBC) Count 4.02 mill/uL (4.70-6.10); White Blood Cell (WBC) Count 5.4 thou/uL (4.8-10.8)
[2020-11-29 08:28] VITALS: BP 139/80; TEMP 98.3
[2020-11-29] MEDS: Furosemide 80 MG TAB PO SCH (08:33)
[2020-11-29] MEDS: Aspirin 81 mg Enteric Coated Tablet PO SCH (08:33)
[2020-11-29] MEDS: traMADol HCl 50 MG TAB PO SCH (08:34)
[2020-11-29] MEDS: Polyethylene Glycol 3350 17 GM Packet PO SCH (08:34)
[2020-11-29 08:43] LABS: Anion Gap 14 mmol/L (10-20); BUN (Urea Nitrogen) 26 mg/dL (8.4-25.7); Calc. Creatinine Clearance 87 mL/min (70-130); Calcium 8.4 mg/dL (7.8-10.44); Carbon Dioxide 29 mmol/L (23-31); Chloride 101 mmol/L (98-107); Glucose 116 mg/dL (80-115); Potassium 3.5 mmol/L (3.5-5.1); Sodium 140 mmol/L (136-145)
== END 2020-11-29 11:15 | disposition home or self-care (01) | DRG 291 ==
LOC: ERS 14:11 → ERHOLD 18:06 → OBSVTOIN 19:22 → 2NO 22:14
PROVIDERS: ADMIT Family Medicine; ATTEND Internal Medicine
DX: I13.0 Hypertensive heart and chronic kidney disease with heart failure and stage 1 through stage 4 chronic kidney disease, or unspecified chronic kidney disease (principal); I50.33 Acute on chronic diastolic (congestive) heart failure; Z68.42 Body mass index [BMI] 45.0-49.9, adult; Z20.822 Contact with and (suspected) exposure to COVID-19; E78.5 Hyperlipidemia, unspecified; E11.22 Type 2 diabetes mellitus with diabetic chronic kidney disease; I25.10 Atherosclerotic heart disease of native coronary artery without angina pectoris; K21.9 Gastro-esophageal reflux disease without esophagitis; N18.30 Chronic kidney disease, stage 3 unspecified; Z96.612 Presence of left artificial shoulder joint; E66.01 Morbid (severe) obesity due to excess calories; I35.0 Nonrheumatic aortic (valve) stenosis; I50.810 Right heart failure, unspecified; K59.00 Constipation, unspecified; I25.2 Old myocardial infarction; Z95.5 Presence of coronary angioplasty implant and graft; Z88.5 Allergy status to narcotic agent; Z91.018 Allergy to other foods; Z79.82 Long term (current) use of aspirin; Z79.899 Other long term (current) drug therapy
CPT/HCPCS: 36415; 36416; 71045; 80048; 80053; 82553; 83690; 83880; 84484; 85025; 87635; 93005; 93306; G0378; J0456; J0696; J1940; J3490; J7050; U0003; U0005

== ENCOUNTER 2021-08-26 15:25 | Outpatient (CLI) | payer MEDICARE, MEDICAID | END 2021-08-26 15:26 | disposition home or self-care (01) | LOC: BICULT 15:25 | PROVIDERS: ATTEND Family Medicine | DX: L72.0 Epidermal cyst (principal); N50.3 Cyst of epididymis; N43.3 Hydrocele, unspecified | CPT/HCPCS: 76870; 93976 ==

== ENCOUNTER 2022-04-03 12:06 | Outpatient (CLI) | payer MEDICARE, MEDICAID | END 2022-04-03 12:07 | disposition home or self-care (01) | LOC: BICULT 12:06 | PROVIDERS: ATTEND Internal Medicine Nephrology | DX: N18.4 Chronic kidney disease, stage 4 (severe) (principal); N43.3 Hydrocele, unspecified; N50.3 Cyst of epididymis | CPT/HCPCS: 76870; 93976 ==

== ENCOUNTER 2022-05-31 23:41 | Emergency (ER) | payer MEDICARE, MEDICAID | END 2022-06-01 00:45 | disposition home or self-care (01) | LOC: ERS 23:41 | DX: B37.0 Candidal stomatitis (principal); Z79.899 Other long term (current) drug therapy; E78.5 Hyperlipidemia, unspecified; K21.9 Gastro-esophageal reflux disease without esophagitis; I50.9 Heart failure, unspecified; E11.9 Type 2 diabetes mellitus without complications; I11.0 Hypertensive heart disease with heart failure; I25.2 Old myocardial infarction | CPT/HCPCS: 99282 ==

== ENCOUNTER 2022-10-23 15:19 | Inpatient (IN) | payer MEDICARE, MEDICAID ==
[2022-10-23 16:05] LABS: Hemoglobin 12.6 g/dL (14.0-18.0); Mean Corpuscular HGB CONC 32.6 g/dL (32.0-36.0); Mean Corpuscular Hemoglobin 30.1 pg (27.0-31.0); Mean Corpuscular Volume 92.2 fl (78.0-98.0); Mean Platelet Volume 8.9 fL (7.4-10.4); Platelet Count 195 10x3/uL (130-400); RBC Distribution Width 12.7 % (11.5-14.5); Red Blood Cell (RBC) Count 4.19 mill/uL (4.70-6.10)
[2022-10-23 16:13] LABS: ALT (SGPT) 26 U/L (8-55); AST (SGOT) 24 U/L (5-34); Albumin 3.9 g/dL (3.4-4.8); Alkaline Phosphatase 96 U/L (40-110); Anion Gap 16 mmol/L (10-20); BUN (Urea Nitrogen) 56 mg/dL (8.4-25.7); Bilirubin, Total 0.5 mg/dL (0.2-1.2); Calc. Creatinine Clearance 0 mL/min (70-130); Calcium 8.8 mg/dL (7.8-10.44); Carbon Dioxide 25 mmol/L (23-31); Chloride 101 mmol/L (98-107); Estimated GFR 23; Globulin 3.4 g/dL (2.4-3.5); Glucose 83 mg/dL (83-110); Lipase 87 U/L (8-78); Potassium 3.5 mmol/L (3.5-5.1); Protein, Total 7.3 g/dL (5.8-8.1); Sodium 138 mmol/L (136-145)
[2022-10-23 16:24] LABS: Band 3 % (5-11); Eosinophils 2 % (0-10); Lymphocytes 29 % (21-51); MDiff Complete? YES; Monocytes 11 % (0-10); Neutrophil 55 % (42-75); Platelet Morphology Comment Appears Adequate; Polychromasia SLIGHT = 2-3 cells (100X) (0-2/hpf)
[2022-10-23 16:35] LABS: CKMB 2.3 ng/mL (0-6.6)
[2022-10-23] MEDS ORDERED: Piperacillin/Tazobactam 4.5 GM VIAL ONE (18:50)
[2022-10-23] MEDS ORDERED: Dextrose 5% in Water 1,000 ML IV PRN (19:12)
[2022-10-23] MEDS ORDERED: HumaLOG 300 UNITS/3 ML VIAL SC PRN ×2 (19:12)
[2022-10-23] MEDS ORDERED: Dextrose 50% Abboject 50 ML SYRINGE SLOW IVP PRN (19:12)
[2022-10-23] MEDS ORDERED: Ondansetron PF 4 MG/2 ML Vial IVP PRN (19:13)
[2022-10-23 19:57] LABS: Troponin I 0.043 ng/mL (< 0.028)
[2022-10-23 20:27] VITALS: BMI 41.8
[2022-10-23 23:05] LABS: Troponin I 0.049 ng/mL (< 0.028)
[2022-10-24 05:23] LABS: #Eosinphils 0.1 thou/uL (0.0-0.7); #Monocytes 0.6 thou/uL (0.11-0.59); #Neutrophils 3.3 thou/uL (1.40-6.50); %Basophils 0.5 % (0.0-1.0); %Eosinophils 1.3 % (0.0-10.0); %Lymphocytes 19.7 % (21.0-51.0); %Monocytes 12.5 % (0.0-10.0); %Neutrophils 65.9 % (42.0-75.0); Hemoglobin 11.7 g/dL (14.0-18.0); Mean Corpuscular HGB CONC 32.9 g/dL (32.0-36.0); Mean Corpuscular Hemoglobin 30.3 pg (27.0-31.0); Mean Corpuscular Volume 92.2 fl (78.0-98.0); Mean Platelet Volume 9.2 fL (7.4-10.4); Platelet Count 183 10x3/uL (130-400); RBC Distribution Width 12.6 % (11.5-14.5); Red Blood Cell (RBC) Count 3.87 mill/uL (4.70-6.10); White Blood Cell (WBC) Count 5.1 10x3/uL (4.8-10.8)
[2022-10-24 05:42] LABS: Anion Gap 14 mmol/L (10-20); BUN (Urea Nitrogen) 55 mg/dL (8.4-25.7); Calc. Creatinine Clearance 48 mL/min (70-130); Calcium 8.8 mg/dL (7.8-10.44); Carbon Dioxide 28 mmol/L (23-31); Chloride 101 mmol/L (98-107); Estimated GFR 25; Glucose 107 mg/dL (83-110); Potassium 3.4 mmol/L (3.5-5.1); Sodium 140 mmol/L (136-145)
[2022-10-24] MEDS ORDERED: Potassium Bicarbonate/Cit Ac 20 MEQ TAB PO SCH (06:45)
[2022-10-24] MEDS: DOBUTamine 500 mg/250 ml 250 ML IVPB SCH (06:46)
[2022-10-24] MEDS: Furosemide 40 MG TAB PO SCH ×2 (08:26→15:29)
[2022-10-24] MEDS: hydrALAZINE 25 MG TAB PO SCH ×3 (08:27→20:41)
[2022-10-24] MEDS: Tamsulosin HCl 0.4 MG CAP PO SCH (08:28)
[2022-10-24] MEDS: Simethicone Chewable 80 MG TAB PO PRN (20:40)
[2022-10-24] MEDS: Atorvastatin Calcium 40 MG TAB PO SCH (20:40)
[2022-10-24] MEDS: Ezetimibe 10 MG TAB PO SCH (20:41)
[2022-10-25] MEDS: Acetaminophen 325 MG TAB PO PRN ×2 (01:51→22:57)
[2022-10-25 06:02] LABS: #Lymphocytes 1.3 thou/uL (1.20-3.40); #Monocytes 0.6 thou/uL (0.11-0.59); #Neutrophils 4.6 thou/uL (1.40-6.50); %Basophils 0.1 % (0.0-1.0); %Eosinophils 0.6 % (0.0-10.0); %Lymphocytes 19.5 % (21.0-51.0); %Monocytes 8.8 % (0.0-10.0); %Neutrophils 70.9 % (42.0-75.0); Hemoglobin 12.3 g/dL (14.0-18.0); Mean Corpuscular HGB CONC 33.1 g/dL (32.0-36.0); Mean Corpuscular Hemoglobin 30.4 pg (27.0-31.0); Mean Corpuscular Volume 91.9 fl (78.0-98.0); Mean Platelet Volume 8.8 fL (7.4-10.4); Platelet Count 194 10x3/uL (130-400); RBC Distribution Width 12.7 % (11.5-14.5); Red Blood Cell (RBC) Count 4.03 mill/uL (4.70-6.10); White Blood Cell (WBC) Count 6.5 10x3/uL (4.8-10.8)
[2022-10-25 06:23] LABS: Anion Gap 15 mmol/L (10-20); BUN (Urea Nitrogen) 52 mg/dL (8.4-25.7); Calc. Creatinine Clearance 47 mL/min (70-130); Carbon Dioxide 27 mmol/L (23-31); Chloride 99 mmol/L (98-107); Estimated GFR 25; Glucose 131 mg/dL (83-110); Magnesium 1.8 mg/dL (1.6-2.6); Sodium 138 mmol/L (136-145)
[2022-10-25] MEDS ORDERED: Potassium Chloride 20 MEQ TAB PO SCH (08:15)
[2022-10-25] MEDS: Simethicone Chewable 80 MG TAB PO PRN (08:24)
[2022-10-25] MEDS: Tamsulosin HCl 0.4 MG CAP PO SCH (08:25)
[2022-10-25] MEDS: Furosemide 40 MG TAB PO SCH ×2 (08:25→14:23)
[2022-10-25] MEDS: hydrALAZINE 25 MG TAB PO SCH ×3 (08:25→20:31)
[2022-10-25] MEDS: DOBUTamine 500 mg/250 ml 250 ML IVPB SCH (08:26)
[2022-10-25] MEDS ORDERED: Polyethylene Glycol 3350 17 GM Packet PO PRN (11:47)
[2022-10-25] MEDS: Ezetimibe 10 MG TAB PO SCH (20:30)
[2022-10-25] MEDS: Atorvastatin Calcium 40 MG TAB PO SCH (20:31)
[2022-10-26 05:46] LABS: #Basophils 0.1 thou/uL (0.0-0.2); #Eosinphils 0.1 thou/uL (0.0-0.7); #Lymphocytes 1.4 thou/uL (1.20-3.40); #Monocytes 0.6 thou/uL (0.11-0.59); %Basophils 0.9 % (0.0-1.0); %Eosinophils 1.8 % (0.0-10.0); %Lymphocytes 22.4 % (21.0-51.0); %Monocytes 9.5 % (0.0-10.0); %Neutrophils 65.4 % (42.0-75.0); Hemoglobin 13.5 g/dL (14.0-18.0); Mean Corpuscular HGB CONC 32.4 g/dL (32.0-36.0); Mean Corpuscular Hemoglobin 29.7 pg (27.0-31.0); Mean Corpuscular Volume 91.6 fl (78.0-98.0); Mean Platelet Volume 8.8 fL (7.4-10.4); Platelet Count 212 10x3/uL (130-400); RBC Distribution Width 12.9 % (11.5-14.5); Red Blood Cell (RBC) Count 4.57 mill/uL (4.70-6.10); White Blood Cell (WBC) Count 6.1 10x3/uL (4.8-10.8)
[2022-10-26 06:10] LABS: Anion Gap 19 mmol/L (10-20); BUN (Urea Nitrogen) 53 mg/dL (8.4-25.7); Calc. Creatinine Clearance 47 mL/min (70-130); Calcium 9.4 mg/dL (7.8-10.44); Carbon Dioxide 24 mmol/L (23-31); Chloride 98 mmol/L (98-107); Estimated GFR 25; Glucose 154 mg/dL (83-110); Potassium 3.5 mmol/L (3.5-5.1); Sodium 137 mmol/L (136-145)
[2022-10-26] MEDS ORDERED: Pioglitazone HCl 15 MG TAB PO SCH (09:00)
[2022-10-26] MEDS ORDERED: Metolazone 5 MG TAB PO SCH (09:00)
[2022-10-26] MEDS: hydrALAZINE 25 MG TAB PO SCH ×2 (09:56→14:33)
[2022-10-26] MEDS: Furosemide 40 MG TAB PO SCH ×2 (09:56→14:33)
[2022-10-26] MEDS: Tamsulosin HCl 0.4 MG CAP PO SCH (09:58)
[2022-10-26 17:17] VITALS: BP 124/56; TEMP 98
== END 2022-10-26 18:20 | disposition home or self-care (01) | DRG 308 ==
LOC: ERS 15:19 → 2SW 18:26 → OBSVTOIN 10-25 13:41
PROVIDERS: ADMIT Internal Medicine; ATTEND Internal Medicine
DX: R00.1 Bradycardia, unspecified (principal); U07.1 COVID-19; I13.0 Hypertensive heart and chronic kidney disease with heart failure and stage 1 through stage 4 chronic kidney disease, or unspecified chronic kidney disease; I50.32 Chronic diastolic (congestive) heart failure; N18.4 Chronic kidney disease, stage 4 (severe); Z68.41 Body mass index [BMI] 40.0-44.9, adult; I44.2 Atrioventricular block, complete; I48.20 Chronic atrial fibrillation, unspecified; I48.92 Unspecified atrial flutter; E78.5 Hyperlipidemia, unspecified; K21.9 Gastro-esophageal reflux disease without esophagitis; I25.10 Atherosclerotic heart disease of native coronary artery without angina pectoris; I48.91 Unspecified atrial fibrillation; Z96.612 Presence of left artificial shoulder joint; E11.22 Type 2 diabetes mellitus with diabetic chronic kidney disease; D63.1 Anemia in chronic kidney disease; M10.9 Gout, unspecified; E66.01 Morbid (severe) obesity due to excess calories; G47.33 Obstructive sleep apnea (adult) (pediatric); Z88.5 Allergy status to narcotic agent; Z79.899 Other long term (current) drug therapy
CPT/HCPCS: 36415; 36416; 71045; 80048; 80053; 82553; 83690; 83735; 83880; 84443; 84484; 85025; 86140; 93005; 93010; 96365; 96366; 96374; 96375; G0378; J1250; J1815; J2543; U0003; U0005

== ENCOUNTER 2022-12-04 13:08 | Emergency (ER) | payer MEDICARE, MEDICAID ==
[2022-12-04 14:16] LABS: #Basophils 0.1 thou/uL (0.0-0.2); #Lymphocytes 1.2 thou/uL (1.20-3.40); #Monocytes 0.9 thou/uL (0.11-0.59); #Neutrophils 7.7 thou/uL (1.40-6.50); %Basophils 0.6 % (0.0-1.0); %Eosinophils 0.4 % (0.0-10.0); %Lymphocytes 12.3 % (21.0-51.0); %Monocytes 8.7 % (0.0-10.0); Hemoglobin 12.9 g/dL (14.0-18.0); Mean Corpuscular Hemoglobin 30.5 pg (27.0-31.0); Mean Corpuscular Volume 89.9 fl (78.0-98.0); Mean Platelet Volume 9.5 fL (7.4-10.4); Platelet Count 194 10x3/uL (130-400); Red Blood Cell (RBC) Count 4.21 mill/uL (4.70-6.10); White Blood Cell (WBC) Count 9.8 10x3/uL (4.8-10.8)
[2022-12-04 14:40] LABS: ALT (SGPT) 15 U/L (8-55); AST (SGOT) 20 U/L (5-34); Albumin 4.1 g/dL (3.4-4.8); Alkaline Phosphatase 99 U/L (40-110); Anion Gap 18 mmol/L (10-20); BUN (Urea Nitrogen) 77 mg/dL (8.4-25.7); Bilirubin, Total 0.6 mg/dL (0.2-1.2); Calc. Creatinine Clearance 0 mL/min (70-130); Calcium 9.4 mg/dL (7.8-10.44); Carbon Dioxide 26 mmol/L (23-31); Chloride 98 mmol/L (98-107); Estimated GFR 23; Globulin 3.6 g/dL (2.4-3.5); Glucose 93 mg/dL (83-110); Lipase 57 U/L (8-78); Protein, Total 7.7 g/dL (5.8-8.1); Sodium 139 mmol/L (136-145)
[2022-12-04 16:25] LABS: Bilirubin Negative (Negative); Blood, Urine Negative (Negative); Clarity Clear (Clear); Glucose, Urine (Dipstick) Normal (Negative); Ketone, Urine Negative (Negative); Leukocyte Negative Leu/uL (Negative); Nitrite Negative (Negative); Protein, Urine (Dipstick) Negative (Neg-Trace); Urobilinogen Normal mg/dL (Less than 2)
[2022-12-04] MEDS ORDERED: Nitroglycerin 2% Ointment 1 INCH/1 GM Packet ONE (16:43)
[2022-12-04] MEDS ORDERED: fentaNYL 50 mcg/mL 1 mL Vial ONE (16:43)
[2022-12-04 17:07] LABS: CKMB 2.3 ng/mL (0-6.6)
[2022-12-04] MEDS ORDERED: Potassium Chloride 20 MEQ TAB ONE (17:48)
== END 2022-12-04 18:56 | disposition home or self-care (01) ==
LOC: ERS 13:08
DX: R10.30 Lower abdominal pain, unspecified (principal); I11.0 Hypertensive heart disease with heart failure; I50.9 Heart failure, unspecified; E11.9 Type 2 diabetes mellitus without complications; K21.9 Gastro-esophageal reflux disease without esophagitis; I25.10 Atherosclerotic heart disease of native coronary artery without angina pectoris
CPT/HCPCS: 74176; 80053; 81003; 82553; 83690; 84484; 85025; 93005; J3010; 36415; 81015; 87086; 96372; 96374; J1650

== ENCOUNTER 2023-06-03 08:28 | Outpatient (CLI) | payer MEDICARE, MEDICAID | END 2023-06-03 08:29 | disposition home or self-care (01) | LOC: ULT 08:28 | PROVIDERS: ATTEND Internal Medicine Gastroenterology | DX: R10.84 Generalized abdominal pain (principal); K59.09 Other constipation | CPT/HCPCS: 76700 ==

== ENCOUNTER 2023-08-02 08:57 | Outpatient (CLI) | payer MEDICARE, MEDICAID | END 2023-08-02 08:58 | disposition home or self-care (01) | LOC: ULT 08:57 | PROVIDERS: ATTEND Urology | DX: N28.9 Disorder of kidney and ureter, unspecified (principal); R35.0 Frequency of micturition; N28.1 Cyst of kidney, acquired; Q63.1 Lobulated, fused and horseshoe kidney; Z87.440 Personal history of urinary (tract) infections | CPT/HCPCS: 76770 ==

== ENCOUNTER 2023-09-16 11:00 | Emergency (ER) | payer MEDICARE, MEDICAID ==
[2023-09-16] MEDS ORDERED: Acetaminophen 500 MG TAB ONE (11:13)
== END 2023-09-16 12:45 | disposition home or self-care (01) ==
LOC: ERS 11:00
DX: S82.832A Other fracture of upper and lower end of left fibula, initial encounter for closed fracture (principal); I25.10 Atherosclerotic heart disease of native coronary artery without angina pectoris; E11.9 Type 2 diabetes mellitus without complications; I11.0 Hypertensive heart disease with heart failure; I50.9 Heart failure, unspecified; E78.5 Hyperlipidemia, unspecified; W01.0XXA Fall on same level from slipping, tripping and stumbling without subsequent striking against object, initial encounter; Z79.82 Long term (current) use of aspirin

== ENCOUNTER 2025-05-16 08:38 | Outpatient (CLI) | payer MEDICARE, MEDICAID | END 2025-05-16 08:39 | disposition home or self-care (01) | LOC: RAD 08:38 | PROVIDERS: ATTEND Orthopaedic Surgery | DX: S32.010A Wedge compression fracture of first lumbar vertebra, initial encounter for closed fracture (principal); M48.062 Spinal stenosis, lumbar region with neurogenic claudication | CPT/HCPCS: 71046 ==

== ENCOUNTER 2025-05-21 13:00 | Emergency (ER) | payer MEDICARE, MEDICAID ==
[2025-05-21 13:25] LABS: #Basophils 0.05 10x3/uL (0.0-0.2); #Eosinophils 0.16 10x3/uL (0.0-0.7); #Monocytes 0.78 10x3/uL (0.11-0.59); #Neutrophils 5.01 10x3/uL (1.40-6.50); %Basophils 0.7 % (0.0-1.0); %Eosinophils 2.3 % (0.0-10.0); %Lymphocytes 13.4 % (21.0-51.0); %Monocytes 11.2 % (0.0-10.0); %Neutrophils 72.0 % (42.0-75.0); Hematocrit 37.9 % (42.0-52.0); Hemoglobin 12.2 g/dL (14.0-18.0); Mean Corpuscular Hemoglobin 28.2 pg (27.0-31.0); Mean Corpuscular Volume 87.5 fL (78.0-98.0); Platelet Count 162 10x3/uL (130-400); Red Blood Cell (RBC) Count 4.33 mill/uL (4.70-6.10); White Blood Cell (WBC) Count 6.96 10x3/uL (4.8-10.8)
[2025-05-21 13:42] LABS: ALT (SGPT) 14 U/L (Less than 45); AST (SGOT) 27 U/L (11-34); Albumin 3.7 g/dL (3.1-4.5); Alkaline Phosphatase 105 U/L (40-110); Anion Gap 11 mmol/L (10-20); BUN (Urea Nitrogen) 31 mg/dL (8.4-25.7); Bilirubin, Total 0.6 mg/dL (0.3-1.2); Calc. Creatinine Clearance 0 mL/min (70-130); Calcium 9.2 mg/dL (7.8-10.44); Carbon Dioxide 28 mmol/L (23-31); Chloride 105 mmol/L (98-107); Globulin 3.7 g/dL (2.4-3.5); Glucose 84 mg/dL (83-110); Lipase 47 U/L (8-78); Potassium 4.1 mmol/L (3.5-5.1); Sodium 140 mmol/L (136-145)
[2025-05-21 13:47] LABS: Bacteria/HPF None Seen HPF (None Seen); CAUTI Indications for Culture Pelvic or flank pain; Glucose, Urine (Dipstick) Normal (Negative); Leukocyte Negative Leu/uL (Negative); Protein, Urine (Dipstick) Negative (Neg-Trace); RBC/HPF 0-3 HPF (0-3); Specific Gravity, Urine 1.007 (1.002-1.036); WBC/HPF None Seen HPF (0-3)
[2025-05-21 14:02] LABS: Urine Culture Reflex No No
[2025-05-21] MEDS ORDERED: Pantoprazole 40 MG VIAL ONE (15:07)
[2025-05-21] MEDS ORDERED: Famotidine/PF 20 mg/2ml Vial ONE (15:07)
== END 2025-05-21 16:11 | disposition home or self-care (01) ==
LOC: ERS 13:00
DX: R10.13 Epigastric pain (principal); E11.22 Type 2 diabetes mellitus with diabetic chronic kidney disease; I13.0 Hypertensive heart and chronic kidney disease with heart failure and stage 1 through stage 4 chronic kidney disease, or unspecified chronic kidney disease; I50.9 Heart failure, unspecified; N18.9 Chronic kidney disease, unspecified; I48.91 Unspecified atrial fibrillation; I25.2 Old myocardial infarction; I25.10 Atherosclerotic heart disease of native coronary artery without angina pectoris; Z95.5 Presence of coronary angioplasty implant and graft; K21.9 Gastro-esophageal reflux disease without esophagitis; Z79.82 Long term (current) use of aspirin; Z79.899 Other long term (current) drug therapy
CPT/HCPCS: 71045; 74176; 80053; 81001; 83690; 84484; 85025; 93005; 96374; 96375; 99285; J2470